=== PATIENT | female | born 1935 | race Caucasian/White ===

== ENCOUNTER 2016-09-05 13:56 | Emergency (ER) | payer MEDICARE, OTHER ==
[2016-09-05] MEDS ORDERED: ONDANSETRON 4 MG/2 ML VIAL IVP STA (16:36)
[2016-09-05] MEDS ORDERED: SODIUM CHLORIDE 0.9% 1,000 ML IV ONE (16:36)
[2016-09-05] MEDS ORDERED: ONDANSETRON 4 MG/2 ML VIAL ONE (16:41)
== END 2016-09-05 18:36 | disposition home or self-care (01) ==
DX: E86.0 Dehydration (principal); S32.059D Unspecified fracture of fifth lumbar vertebra, subsequent encounter for fracture with routine healing; E11.9 Type 2 diabetes mellitus without complications; I11.0 Hypertensive heart disease with heart failure; I50.9 Heart failure, unspecified; Z79.82 Long term (current) use of aspirin; Z79.4 Long term (current) use of insulin; Z87.891 Personal history of nicotine dependence

== ENCOUNTER 2016-10-08 | Outpatient (CLI) | payer MEDICARE, OTHER | END 2016-10-08 11:04 | disposition critical access hospital (66) | CPT/HCPCS: A0425; A0427 ==

== ENCOUNTER 2016-10-08 11:24 | Inpatient (IN) | payer MEDICARE, OTHER ==
[2016-10-08] MEDS ORDERED: SODIUM CHLORIDE 0.9% 1,000 ML IV ONE ×2 (12:18→14:09)
[2016-10-08] MEDS ORDERED: IOPAMIDOL-300 100 ML VIAL IVP ONE (14:04)
[2016-10-08] MEDS ORDERED: ONDANSETRON 4 MG/2 ML VIAL IVP STA (14:09)
[2016-10-08] MEDS ORDERED: ONDANSETRON 4 MG/2 ML VIAL ONE (14:20)
[2016-10-08] MEDS ORDERED: KETOROLAC 15 MG/ML VIAL IVP STA (14:27)
[2016-10-08] MEDS ORDERED: PANTOPRAZOLE 40 MG VIAL IVP STA (14:28)
[2016-10-08] MEDS ORDERED: KETOROLAC 30 MG/ML VIAL ONE (14:37)
[2016-10-08] MEDS ORDERED: PANTOPRAZOLE 40 MG VIAL ONE (14:38)
[2016-10-08] MEDS ORDERED: DEXTROSE 50% ABBOJECT 25 GM/50 ML SYRINGE ONE (15:30)
[2016-10-08] MEDS ORDERED: HYDROcod/ACETAM 10 MG/325 MG TABLET PO PRN (17:26)
[2016-10-08] MEDS ORDERED: ONDANSETRON 4 MG/2 ML VIAL IVP PRN (17:26)
[2016-10-08] MEDS ORDERED: LIDOCAINE PATCH 5% TOP PRN (17:33)
[2016-10-08] MEDS ORDERED: oxyCOD/ACETAMIN 5 MG/325 MG TABLET PO PRN (17:36)
[2016-10-08] MEDS ORDERED: TANZEUM 30 MG SQ SCH (17:45)
[2016-10-08] MEDS ORDERED: ALENDRONATE 70 MG TABLET PO SCH (18:00)
[2016-10-08] MEDS: DEXTROSE 5%-0.45% NACL 1,000 ML IV SCH (19:34)
[2016-10-08] MEDS ORDERED: INSULIN GLARGINE 300 UNIT/3 ML PEN SUBQ SCH (21:00)
[2016-10-08] MEDS ORDERED: SIMVASTATIN PO SCH (21:00)
[2016-10-08] MEDS ORDERED: LISINOPRIL 20 MG TABLET PO SCH ×2 (21:00→22:09)
[2016-10-08] MEDS ORDERED: EZETIMIBE PO SCH (21:00)
[2016-10-08] MEDS ORDERED: amLODIPine 5 MG TABLET PO SCH (21:00)
[2016-10-08] MEDS ORDERED: GLUCAGON 1 MG/ML VIAL SUBQ PRN (22:07)
[2016-10-08] MEDS ORDERED: DEXTROSE GEL 37.5 GM TUBE PO PRN (22:07)
[2016-10-08] MEDS ORDERED: DEXTROSE 5% 1,000 ML IV PRN (22:07)
[2016-10-08] MEDS: ATORVASTATIN 10 MG TABLET PO SCH (22:25)
[2016-10-08] MEDS: EZETIMIBE 10 MG TABLET PO SCH (22:25)
[2016-10-08] MEDS: GABAPENTIN 300 MG CAPSULE PO SCH (22:25)
[2016-10-08] MEDS: INSULIN ASPART 300 UNIT/3 ML PEN SUBQ SCH (22:26)
[2016-10-08] MEDS: SODIUM CHLORIDE FLUSH 0.9% 10 ML SYRINGE IVP SCH (22:30)
[2016-10-09] MEDS: DEXTROSE 5%-0.45% NACL 1,000 ML IV SCH ×2 (04:49→22:45)
[2016-10-09] MEDS: SODIUM CHLORIDE FLUSH 0.9% 10 ML SYRINGE IVP SCH ×3 (04:52→21:06)
[2016-10-09] MEDS: DEXTROSE 50% ABBOJECT 25 GM/50 ML SYRINGE IVP PRN ×2 (06:41→10:06)
[2016-10-09] MEDS: PANTOPRAZOLE 40 MG VIAL IVP SCH ×2 (06:44→19:14)
[2016-10-09] MEDS: LEVOTHYROXINE 25 MCG TABLET PO SCH (06:44)
[2016-10-09] MEDS ORDERED: ATENOLOL 25 MG TABLET PO SCH (09:00)
[2016-10-09] MEDS ORDERED: ALLOPURINOL 100 MG TABLET PO SCH (09:00)
[2016-10-09] MEDS ORDERED: amLODIPine 5 MG TABLET PO SCH (09:00)
[2016-10-09] MEDS ORDERED: DEXTROSE 50% ABBOJECT 25 GM/50 ML SYRINGE IVP ONE (10:02)
[2016-10-09] MEDS ORDERED: DEXTROSE 5%-LACTATED RINGERS 1,000 ML IV ONE (10:33)
[2016-10-09] MEDS: INSULIN ASPART 300 UNIT/3 ML PEN SUBQ SCH ×4 (11:42→21:46)
[2016-10-09] MEDS ORDERED: LIDOCAINE-MPF 2% 5 ML VIAL IM ONE (12:00)
[2016-10-09] MEDS ORDERED: DEXAMETHASONE 4 MG/ML VIAL IVP ONE (12:00)
[2016-10-09] MEDS ORDERED: PROPOFOL 200 MG/20 ML VIAL IVP ONE (12:00)
[2016-10-09] MEDS ORDERED: SUCCINYLCHOLINE 200 MG/10 ML VIAL IVP ONE (12:00)
[2016-10-09] MEDS ORDERED: MIDAZOLAM 2 MG/2 ML VIAL IVP ONE (12:00)
[2016-10-09] MEDS ORDERED: OXYTOCIN 10 UNIT/ML VIAL IV ONE (12:00)
[2016-10-09] MEDS ORDERED: ROCURONIUM 50 MG/5 ML VIAL IVP ONE (12:00)
[2016-10-09] MEDS ORDERED: fentaNYL 100 MCG/2 ML VIAL IVP ONE (12:00)
[2016-10-09] MEDS ORDERED: ONDANSETRON 4 MG/2 ML VIAL IVP ONE (12:00)
[2016-10-09] MEDS ORDERED: SODIUM CHLORIDE 0.9% 500 ML IV ONE ×2 (12:18→13:39)
[2016-10-09] MEDS: GABAPENTIN 300 MG CAPSULE PO SCH ×2 (20:19→22:44)
[2016-10-09] MEDS: ASPIRIN CHEW 81 MG TABLET PO SCH (20:19)
[2016-10-09] MEDS: ENOXAPARIN 40 MG/0.4 ML SYRINGE SUBQ SCH (20:19)
[2016-10-09] MEDS: DOCUSATE SODIUM 250 MG CAPSULE PO SCH (20:19)
[2016-10-09] MEDS: SENNA 8.6 MG TABLET PO SCH (20:19)
[2016-10-09] MEDS: POLYETHYLENE GLYCOL 3350 17 GM PACKET PO SCH (20:19)
[2016-10-09] MEDS: ONDANSETRON 4 MG/2 ML VIAL IVP PRN (21:06)
[2016-10-09] MEDS ORDERED: LIDOCAINE PATCH 5% TOP SCH (22:00)
[2016-10-09] MEDS: fentaNYL 50 MCG PATCH TOP SCH (22:26)
[2016-10-09] MEDS: ATORVASTATIN 10 MG TABLET PO SCH (22:44)
[2016-10-09] MEDS: EZETIMIBE 10 MG TABLET PO SCH (22:44)
[2016-10-09] MEDS ORDERED: MORPHINE 2 MG/ML SYRINGE IVP PRN (23:04)
[2016-10-10] MEDS ORDERED: PROMETHAZINE INJ 25 MG in SODIUM CHLORIDE 0.9% 50 ML IV PRN (00:26)
[2016-10-10] MEDS ORDERED: DEXTROSE 5% 1,000 ML IV PRN (01:55)
[2016-10-10] MEDS: SODIUM CHLORIDE FLUSH 0.9% 10 ML SYRINGE IVP PRN (04:38)
[2016-10-10] MEDS: SODIUM CHLORIDE FLUSH 0.9% 10 ML SYRINGE IVP SCH ×3 (05:10→21:05)
[2016-10-10] MEDS: POTASSIUM CHLOR 20 MEQ/100 ML 100 ML IV SCH ×4 (05:31→07:54)
[2016-10-10] MEDS: MAGNESIUM SULFATE 2 GRAM 50 ML IV SCH ×2 (05:32→06:31)
[2016-10-10] MEDS: PANTOPRAZOLE 40 MG VIAL IVP SCH ×2 (06:31→15:56)
[2016-10-10] MEDS: LEVOTHYROXINE 25 MCG TABLET PO SCH (06:32)
[2016-10-10] MEDS: DEXTROSE 5%-0.45% NACL 1,000 ML IV SCH ×3 (07:32→20:38)
[2016-10-10] MEDS: INSULIN ASPART 300 UNIT/3 ML PEN SUBQ SCH ×4 (07:51→21:17)
[2016-10-10] MEDS: D5.45NS W/20 MEQ KCL 1,000 ML IV SCH ×2 (08:47→21:05)
[2016-10-10] MEDS: SENNA 8.6 MG TABLET PO SCH (08:48)
[2016-10-10] MEDS: ENOXAPARIN 40 MG/0.4 ML SYRINGE SUBQ SCH (08:48)
[2016-10-10] MEDS: DOCUSATE SODIUM 250 MG CAPSULE PO SCH (08:48)
[2016-10-10] MEDS: METOCLOPRAMIDE 10 MG/2 ML VIAL IVP SCH ×2 (08:48→15:57)
[2016-10-10] MEDS: GABAPENTIN 300 MG CAPSULE PO SCH ×2 (08:49→21:04)
[2016-10-10] MEDS: ASPIRIN CHEW 81 MG TABLET PO SCH (08:49)
[2016-10-10] MEDS: LIDOCAINE PATCH 5% TOP SCH (08:49)
[2016-10-10] MEDS: POLYETHYLENE GLYCOL 3350 17 GM PACKET PO SCH (08:57)
[2016-10-10] MEDS ORDERED: SODIUM PHOSPHATE 15 MMOL in SODIUM CHLORIDE 0.9% 250 ML IV ONE (09:00)
[2016-10-10] MEDS ORDERED: CALCITONIN NASAL SPRAY NAS SCH (09:00)
[2016-10-10] MEDS: ONDANSETRON 4 MG/2 ML VIAL IVP PRN (20:38)
[2016-10-10] MEDS: ATORVASTATIN 10 MG TABLET PO SCH (21:04)
[2016-10-10] MEDS: EZETIMIBE 10 MG TABLET PO SCH (21:05)
[2016-10-10] MEDS: DEXTROSE 5%-0.9% NACL 1,000 ML IV SCH (21:15)
[2016-10-10] MEDS ORDERED: SODIUM CHLORIDE 0.9% 1,000 ML IV SCH (22:52)
[2016-10-11] MEDS: LEVOTHYROXINE 25 MCG TABLET PO SCH (06:27)
[2016-10-11] MEDS: PANTOPRAZOLE 40 MG VIAL IVP SCH ×2 (06:27→15:36)
[2016-10-11] MEDS: METOCLOPRAMIDE 10 MG/2 ML VIAL IVP SCH ×3 (06:27→15:36)
[2016-10-11] MEDS: SODIUM CHLORIDE FLUSH 0.9% 10 ML SYRINGE IVP SCH ×3 (06:27→15:36)
[2016-10-11] MEDS ORDERED: POTASSIUM PHOSPHATE 15 MMOL in SODIUM CHLORIDE 0.9% 250 ML IV ONE (08:00)
[2016-10-11] MEDS: INSULIN ASPART 300 UNIT/3 ML PEN SUBQ SCH ×4 (08:48→21:19)
[2016-10-11] MEDS: DEXTROSE 5%-0.9% NACL 1,000 ML IV SCH (10:07)
[2016-10-11] MEDS: CALCITONIN NASAL SPRAY NAS SCH (13:02)
[2016-10-11] MEDS: ASPIRIN CHEW 81 MG TABLET PO SCH (13:02)
[2016-10-11] MEDS: ENOXAPARIN 40 MG/0.4 ML SYRINGE SUBQ SCH (13:03)
[2016-10-11] MEDS: LIDOCAINE PATCH 5% TOP SCH (13:03)
[2016-10-11] MEDS: DOCUSATE SODIUM 250 MG CAPSULE PO SCH (13:03)
[2016-10-11] MEDS: GABAPENTIN 300 MG CAPSULE PO SCH ×2 (13:03→21:19)
[2016-10-11] MEDS: POLYETHYLENE GLYCOL 3350 17 GM PACKET PO SCH (13:04)
[2016-10-11] MEDS: SENNA 8.6 MG TABLET PO SCH (13:04)
[2016-10-11] MEDS: D5.45NS W/20 MEQ KCL 1,000 ML IV SCH (15:05)
[2016-10-11] MEDS ORDERED: MAGNESIUM HYDROXIDE 2,400 MG/30 ML UDC PO ONE (21:00)
[2016-10-11] MEDS: EZETIMIBE 10 MG TABLET PO SCH (21:19)
[2016-10-11] MEDS: ATORVASTATIN 10 MG TABLET PO SCH (21:19)
[2016-10-11] MEDS: SODIUM CHLORIDE FLUSH 0.9% 10 ML SYRINGE IVP PRN (21:30)
[2016-10-12] MEDS: LEVOTHYROXINE 25 MCG TABLET PO SCH (06:29)
[2016-10-12] MEDS: D5.45NS W/20 MEQ KCL 1,000 ML IV SCH ×3 (06:29→23:42)
[2016-10-12] MEDS: PANTOPRAZOLE 40 MG VIAL IVP SCH ×2 (06:29→17:09)
[2016-10-12] MEDS: METOCLOPRAMIDE 10 MG/2 ML VIAL IVP SCH ×3 (06:29→18:06)
[2016-10-12] MEDS: SODIUM CHLORIDE FLUSH 0.9% 10 ML SYRINGE IVP SCH ×3 (06:29→21:24)
[2016-10-12] MEDS ORDERED: FLUCONAZOLE 100 MG TABLET PO STA (07:45)
[2016-10-12] MEDS: ENOXAPARIN 40 MG/0.4 ML SYRINGE SUBQ SCH (09:09)
[2016-10-12] MEDS: NEUTRA-PHOS 250 MG TABLET PO SCH ×3 (09:10→18:07)
[2016-10-12] MEDS: ASPIRIN CHEW 81 MG TABLET PO SCH (09:10)
[2016-10-12] MEDS: LIDOCAINE PATCH 5% TOP SCH (09:10)
[2016-10-12] MEDS: GABAPENTIN 300 MG CAPSULE PO SCH ×2 (09:10→21:22)
[2016-10-12] MEDS: SENNA 8.6 MG TABLET PO SCH (09:11)
[2016-10-12] MEDS: DOCUSATE SODIUM 250 MG CAPSULE PO SCH (09:11)
[2016-10-12] MEDS: POLYETHYLENE GLYCOL 3350 17 GM PACKET PO SCH (09:11)
[2016-10-12] MEDS: INSULIN ASPART 300 UNIT/3 ML PEN SUBQ SCH ×4 (09:12→21:26)
[2016-10-12] MEDS ORDERED: BENZOCAINE/MENTHOL LOZENGE MM ONE ×2 (09:17→09:55)
[2016-10-12] MEDS: ONDANSETRON 4 MG/2 ML VIAL IVP PRN (09:19)
[2016-10-12] MEDS: CALCITONIN NASAL SPRAY NAS SCH (09:25)
[2016-10-12] MEDS ORDERED: BISACODYL 10 MG SUPP PR ONE (13:00)
[2016-10-12] MEDS: SODIUM CHLORIDE FLUSH 0.9% 10 ML SYRINGE IVP PRN ×3 (13:21→21:24)
[2016-10-12] MEDS: ATORVASTATIN 10 MG TABLET PO SCH (21:22)
[2016-10-12] MEDS: EZETIMIBE 10 MG TABLET PO SCH (21:22)
[2016-10-12] MEDS: fentaNYL 50 MCG PATCH TOP SCH (21:36)
[2016-10-13] MEDS: SODIUM CHLORIDE FLUSH 0.9% 10 ML SYRINGE IVP SCH ×3 (06:00→17:31)
[2016-10-13] MEDS: PANTOPRAZOLE 40 MG VIAL IVP SCH ×2 (06:11→17:31)
[2016-10-13] MEDS: LEVOTHYROXINE 25 MCG TABLET PO SCH (07:13)
[2016-10-13] MEDS: DEXTROSE 50% ABBOJECT 25 GM/50 ML SYRINGE IVP PRN (07:18)
[2016-10-13] MEDS: METOCLOPRAMIDE 10 MG/2 ML VIAL IVP SCH ×3 (09:31→17:31)
[2016-10-13] MEDS: ENOXAPARIN 40 MG/0.4 ML SYRINGE SUBQ SCH (09:51)
[2016-10-13] MEDS: ONDANSETRON 4 MG/2 ML VIAL IVP PRN ×2 (10:28→17:24)
[2016-10-13] MEDS: INSULIN ASPART 300 UNIT/3 ML PEN SUBQ SCH ×4 (10:50→21:40)
[2016-10-13] MEDS: GABAPENTIN 300 MG CAPSULE PO SCH ×2 (11:18→21:49)
[2016-10-13] MEDS: FLUCONAZOLE 100 MG TABLET PO SCH (11:18)
[2016-10-13] MEDS: DOCUSATE SODIUM 250 MG CAPSULE PO SCH (11:18)
[2016-10-13] MEDS: SENNA 8.6 MG TABLET PO SCH (11:18)
[2016-10-13] MEDS: NEUTRA-PHOS 250 MG TABLET PO SCH ×3 (11:18→17:31)
[2016-10-13] MEDS: CALCITONIN NASAL SPRAY NAS SCH (11:19)
[2016-10-13] MEDS: ASPIRIN CHEW 81 MG TABLET PO SCH (11:19)
[2016-10-13] MEDS: POLYETHYLENE GLYCOL 3350 17 GM PACKET PO SCH (11:20)
[2016-10-13] MEDS: LIDOCAINE PATCH 5% TOP SCH (11:23)
[2016-10-13] MEDS: D5.45NS W/20 MEQ KCL 1,000 ML IV SCH (14:53)
[2016-10-13] MEDS: EZETIMIBE 10 MG TABLET PO SCH (21:49)
[2016-10-13] MEDS: ATORVASTATIN 10 MG TABLET PO SCH (21:49)
[2016-10-14] MEDS: SODIUM CHLORIDE FLUSH 0.9% 10 ML SYRINGE IVP SCH ×4 (06:23→21:17)
[2016-10-14] MEDS: PANTOPRAZOLE 40 MG VIAL IVP SCH ×2 (06:24→16:12)
[2016-10-14] MEDS: LEVOTHYROXINE 25 MCG TABLET PO SCH (06:24)
[2016-10-14] MEDS: D5.45NS W/20 MEQ KCL 1,000 ML IV SCH ×2 (07:03→17:49)
[2016-10-14] MEDS: METOCLOPRAMIDE 10 MG/2 ML VIAL IVP SCH (07:43)
[2016-10-14] MEDS: DEXTROSE 50% ABBOJECT 25 GM/50 ML SYRINGE IVP PRN (08:17)
[2016-10-14] MEDS: INSULIN ASPART 300 UNIT/3 ML PEN SUBQ SCH ×4 (08:51→21:03)
[2016-10-14] MEDS ORDERED: CALCIUM GLUCONATE 1,000 MG in SODIUM CHLORIDE 0.9% 50 ML IV ONE (09:00)
[2016-10-14] MEDS: ASPIRIN CHEW 81 MG TABLET PO SCH (09:37)
[2016-10-14] MEDS: FLUCONAZOLE 100 MG TABLET PO SCH (09:37)
[2016-10-14] MEDS: GABAPENTIN 300 MG CAPSULE PO SCH ×2 (09:37→21:05)
[2016-10-14] MEDS: ONDANSETRON 4 MG/2 ML VIAL IVP PRN (09:38)
[2016-10-14] MEDS: NEUTRA-PHOS 250 MG TABLET PO SCH ×3 (10:15→17:48)
[2016-10-14] MEDS: ACYCLOVIR 200 MG CAPSULE PO SCH ×3 (10:15→21:06)
[2016-10-14] MEDS: POLYETHYLENE GLYCOL 3350 17 GM PACKET PO SCH (10:17)
[2016-10-14] MEDS: ENOXAPARIN 40 MG/0.4 ML SYRINGE SUBQ SCH (10:24)
[2016-10-14] MEDS: LIDOCAINE PATCH 5% TOP SCH (10:24)
[2016-10-14] MEDS: CALCITONIN NASAL SPRAY NAS SCH (10:27)
[2016-10-14] MEDS: DOCUSATE SODIUM 250 MG CAPSULE PO SCH (10:27)
[2016-10-14] MEDS: SENNA 8.6 MG TABLET PO SCH (10:27)
[2016-10-14] MEDS: METOCLOPRAMIDE 10 MG TABLET PO SCH ×3 (12:21→21:05)
[2016-10-14] MEDS: SODIUM CHLORIDE FLUSH 0.9% 10 ML SYRINGE IVP PRN (16:12)
[2016-10-14] MEDS: oxyCOD/ACETAMIN 5 MG/325 MG TABLET PO PRN (21:05)
[2016-10-14] MEDS: ATORVASTATIN 10 MG TABLET PO SCH (21:06)
[2016-10-15] MEDS: D5.45NS W/20 MEQ KCL 1,000 ML IV SCH (02:57)
[2016-10-15] MEDS: LEVOTHYROXINE 25 MCG TABLET PO SCH (06:54)
[2016-10-15] MEDS: PANTOPRAZOLE 40 MG VIAL IVP SCH (06:54)
[2016-10-15] MEDS: METOCLOPRAMIDE 10 MG TABLET PO SCH ×2 (06:54→12:19)
[2016-10-15] MEDS: SODIUM CHLORIDE FLUSH 0.9% 10 ML SYRINGE IVP SCH (06:54)
[2016-10-15] MEDS: ACYCLOVIR 200 MG CAPSULE PO SCH ×2 (06:54→12:19)
[2016-10-15] MEDS: LIDOCAINE PATCH 5% TOP SCH (08:51)
[2016-10-15] MEDS: CALCITONIN NASAL SPRAY NAS SCH (08:52)
[2016-10-15] MEDS: oxyCOD/ACETAMIN 5 MG/325 MG TABLET PO PRN ×2 (08:52→12:19)
[2016-10-15] MEDS: NEUTRA-PHOS 250 MG TABLET PO SCH ×2 (08:53→12:19)
[2016-10-15] MEDS: SENNA 8.6 MG TABLET PO SCH (08:53)
[2016-10-15] MEDS: ASPIRIN CHEW 81 MG TABLET PO SCH (08:53)
[2016-10-15] MEDS: POLYETHYLENE GLYCOL 3350 17 GM PACKET PO SCH (08:53)
[2016-10-15] MEDS: GABAPENTIN 300 MG CAPSULE PO SCH (08:53)
[2016-10-15] MEDS: DOCUSATE SODIUM 250 MG CAPSULE PO SCH (08:53)
[2016-10-15] MEDS: ENOXAPARIN 40 MG/0.4 ML SYRINGE SUBQ SCH (08:55)
[2016-10-15] MEDS: INSULIN ASPART 300 UNIT/3 ML PEN SUBQ SCH (08:59)
== END 2016-10-15 13:40 | DRG 392 ==
DX: R11.2 Nausea with vomiting, unspecified (principal); T14.8 Other injury of unspecified body region; M47.816 Spondylosis without myelopathy or radiculopathy, lumbar region; R11.11 Vomiting without nausea; R62.7 Adult failure to thrive; B00.89 Other herpesviral infection; E87.2 Acidosis; E46 Unspecified protein-calorie malnutrition; E78.00 Pure hypercholesterolemia, unspecified; E13.51 Other specified diabetes mellitus with diabetic peripheral angiopathy without gangrene; Z68.44 Body mass index [BMI] 60.0-69.9, adult; K20.8 Other esophagitis; K21.9 Gastro-esophageal reflux disease without esophagitis; E11.43 Type 2 diabetes mellitus with diabetic autonomic (poly)neuropathy; K31.84 Gastroparesis; Z79.82 Long term (current) use of aspirin; K29.70 Gastritis, unspecified, without bleeding; Z79.891 Long term (current) use of opiate analgesic; Z79.899 Other long term (current) drug therapy; E11.649 Type 2 diabetes mellitus with hypoglycemia without coma; E11.51 Type 2 diabetes mellitus with diabetic peripheral angiopathy without gangrene; R53.1 Weakness; E03.9 Hypothyroidism, unspecified; E78.5 Hyperlipidemia, unspecified; I11.0 Hypertensive heart disease with heart failure; I50.9 Heart failure, unspecified; F32.9 Major depressive disorder, single episode, unspecified; E86.0 Dehydration; I95.9 Hypotension, unspecified; M10.9 Gout, unspecified; K57.30 Diverticulosis of large intestine without perforation or abscess without bleeding; K44.9 Diaphragmatic hernia without obstruction or gangrene; Z79.4 Long term (current) use of insulin; I25.10 Atherosclerotic heart disease of native coronary artery without angina pectoris; N28.9 Disorder of kidney and ureter, unspecified; S32.009S Unspecified fracture of unspecified lumbar vertebra, sequela; W19.XXXS Unspecified fall, sequela; G89.29 Other chronic pain; M54.9 Dorsalgia, unspecified; K75.9 Inflammatory liver disease, unspecified; Z87.891 Personal history of nicotine dependence; T38.3X5A Adverse effect of insulin and oral hypoglycemic [antidiabetic] drugs, initial encounter; T40.4X5A Adverse effect of other synthetic narcotics, initial encounter; T42.6X5A Adverse effect of other antiepileptic and sedative-hypnotic drugs, initial encounter; T40.2X5A Adverse effect of other opioids, initial encounter; Y92.009 Unspecified place in unspecified non-institutional (private) residence as the place of occurrence of the external cause

== ENCOUNTER 2016-10-15 | Outpatient (CLI) | payer MEDICARE, OTHER | END 2016-10-15 13:16 | DX: R53.1 Weakness (principal) | CPT/HCPCS: A0425; A0428 ==

== ENCOUNTER 2017-01-20 13:25 | Outpatient (CLI) | payer MEDICARE, OTHER | END 2017-01-20 13:26 | disposition critical access hospital (66) | LOC: EMS 13:25 | PROVIDERS: ATTEND Surgery | DX: M54.9 Dorsalgia, unspecified (principal) | CPT/HCPCS: A0425; A0429 ==

== ENCOUNTER 2017-01-20 13:47 | Observation (INO) | payer MEDICARE, OTHER ==
--- NOTE | 2017-01-20 13:51 | ED Physician Documentation ---
PD HPI BACK PAIN - Stated complaint Stated Complaint: BACK PAIN - History obtained from History obtained from: Patient, Family (spouse), EMS - History of Present Illness Timing - onset: How many days ago (has had pain in lumbar area since last Oct from burst fracture L1. Has been on pain meds but has been worse pain lately. No new fall/ injury, but pain has increased with being helped up few days ago. Had been seen by PMD and had Fentanyl patch resumed a month ago. Also has hydrocodone. Previously fentanyl patch 50 mcg and percocet had led to too much sedation. So is at Fentanyl 25 mcg now with hydrocodone. Not pain controlled. Had Xanax ? added as muscle relaxant several days ago. Patient says pain has worsened the past couple days and is unable to get up even with assist. Does have Home Aides through many hours of day. unable to lift her up and she has not been able to get out of bed due to pain. Here via EMS for evaluation.) Timing - details: Gradual onset, Still present Location: Lower, Left Quality: Pain, Spasm, Sharp Associated symptoms: Incontinent of urine (chronic). No: Fever, Weakness, Numbness Worsened by: Movement, Twisting Contributing factors: Twisting. No: Trauma Recently seen: Not recently seen Review of Systems Constitutional: denies: Fever, Chills Nose: denies: Rhinorrhea / runny nose, Congestion Throat: denies: Sore throat Respiratory: denies: Cough GI: denies: Abdominal Pain, Nausea, Vomiting, Diarrhea Skin: denies: Rash, Lesions PD PAST MEDICAL HISTORY - Past Medical History Cardiovascular: Congestive heart failure, Hypertension, High cholesterol, Coronary artery disease, Peripheral Vascular Disease Respiratory: None Neuro: None Endocrine/Autoimmune: Type 2 diabetes, Other GI: Hepatitis : Renal insuffiency HEENT: None Psych: None Musculoskeletal: Gout, Chronic back pain Derm: None - Past Surgical History Past Surgical History: Yes General: Cholecystectomy, Appendectomy, Colonoscopy Ortho: Other - Present Medications Home Medications: Ambulatory Orders Medication Instructions Recorded Confirmed Allopurinol 100 mg PEG DAILY 12/08/13 01/20/17 Atenolol 100 mg PEG DAILY 12/08/13 01/20/17 Levothyroxine [Synthroid] 25 mcg PO DAILY 11/05/15 01/20/17 Multivitamin [Multivitamins] 1 each PEG DAILY 11/05/15 01/20/17 Gabapentin 300 mg PO TID 10/08/16 01/20/17 Hydrocodone/Acetaminophen [Lortab 1 tab PEG Q4H PRN 10/08/16 01/20/17 5-325 mg Tablet] Lidocaine Patch 5% [Lidoderm Patch] 1 patch TD DAILY 10/08/16 01/20/17 Temazepam [Restoril] 7.5 mg PO QPM 10/08/16 01/20/17 fentaNYL 50 MCG PATCH [Duragesic 1 patch TD Q72H 10/08/16 01/20/17 50mcg patch] Alprazolam 0.5 mg PEG TID PRN 01/20/17 01/20/17 Carbidopa/Levodopa 10/100 [Sinemet 1 tab PEG BID 01/20/17 01/20/17 10 mg/100 mg] Furosemide [Lasix] 20 mg PEG DAILY 01/20/17 01/20/17 Nortriptyline [Pamelor] 10 mg PEG DAILY 01/20/17 01/20/17 Simvastatin 20 mg PEG DAILY 01/20/17 01/20/17 Warfarin Sodium [Coumadin] 2 mg PEG DAILY 01/20/17 01/20/17 - Allergies Allergies/Adverse Reactions: Allergies Allergy/AdvReac Type Severity Reaction Status Date / Time nitrofurantoin Allergy feels sick Verified 01/20/17 14:20 [From Macrobid] nitrofurantoin Allergy feels sick Verified 01/20/17 14:20 macrocrystalline * [From Macrobid] - Social History Does the pt smoke?: No Smoking Status: Former smoker Does the pt drink ETOH?: No Does the pt have substance abuse?: No - Immunizations Immunizations are current?: Yes - POLST Patient has POLST: Yes POLST Status: DNR PD ED PE NORMAL - Vitals Vital signs reviewed: Yes - General General: Alert and oriented X 3, No acute distress, Well developed/nourished - HEENT HEENT: Atraumatic - Neck Neck: Supple, no meningeal sign, No bony TTP, No adenopathy - Cardiac Cardiac: RRR, No murmur - Respiratory Respiratory: Clear bilaterally - Abdomen Abdomen: Soft, Non tender - Back Back: Other (left low back with some muscle tenderness. No point trigger. pain with ROM attempt. ) - Derm Derm: Normal color, Warm and dry, No rash - Extremities Extremities: No tenderness to palpate, Normal ROM s pain - Neuro Neuro: Alert and oriented X 3, No motor deficit, No sensory deficit, Normal speech, Other (1+ DTRs at knees) - Psych Psych: Normal mood, Normal affect Results - Vitals Vitals: Vital Signs - 24 hr 01/20/17 01/20/17 01/20/17 13:54 16:11 17:10 Temperature 36.1 C L Heart Rate 74 59 L 74 Respiratory 19 18 19 Rate Blood Pressure 138/74 H 93/59 L 119/73 O2 Saturation 97 96 96 Oxygen O2 Source [With Activity] Nasal cannula O2 Source Room air - Labs Labs: Laboratory Tests 01/20/17 01/20/17 14:25 14:25 WBC 14.1 H RBC 4.28 Hgb 12.5 Hct 37.3 MCV 87.1 MCH 29.3 MCHC 33.6 RDW 15.6 H Plt Count 292 MPV 7.6 L Neut # Not Reportable Lymph # Not Reportable [place] # Not Reportable Eos # Not Reportable Baso # Not Reportable Absolute Nucleated RBC Not Reportable Total Counted 100 Band Neuts % (Manual) 0 Reactive Lymphs % (Man) 3 Neutrophils # (Manual) 9.7 H Lymphocytes # (Manual) 3.1 Monocytes # (Manual) 0.8 Eosinophils # (Manual) 0.3 Basophils # (Manual) 0.1 Nucleated RBCs Not Reportable Differential Comment MANUAL DIFFERENTIAL Platelet Estimate NORMAL (130-450,000) RBC Morph Micro Appear 1+ POLYCHROMASIA PT 59.7 H INR 5.2 H* sda - Rads (name of study) lumbar CT Radiology: Prelim report reviewed (no acute/new fractures. Prior burst fracture noted.), EMP read contemporaneously PD MEDICAL DECISION MAKING - ED course Complexity details: reviewed results, considered differential (will get CT lumbar to assess for new fractures. Check labs. Her INR is elevated. WBC also elevated. UA done via cath showing UTI. ), d/w patient, d/w vocational rehabilitation consultant (Dr. Avery, due to pain and intractable. Unable to move/walk. ) Departure - Departure Disposition: ED Place in Observation Clinical Impression: Closed compression fracture of L1 lumbar vertebra, Exacerbation of chronic back pain, Intractable back pain, Inability to walk, Anticoagulant long-term use , Elevated INR UTI (urinary tract infection) Qualifiers: Urinary tract infection type: site unspecified Hematuria presence: without hematuria Qualified Code(s): N39.0 - Urinary tract infection, site not specified Condition: Stable Record reviewed to determine appropriate education?: Yes Discharge Date/Time: 01/20/17 19:55
[2017-01-20] MEDS ORDERED: HYDROmorphone 1 MG/ML SYRINGE IVP STA ×2 (14:11→16:36)
[2017-01-20] MEDS ORDERED: HYDROmorphone 1 MG/ML SYRINGE ONE ×2 (14:24→17:01)
[2017-01-20 14:36] LABS: BASOPHILS % (AUTO) 0.6 %; EOSINOPHILS % (AUTO) 1.5 %; HCT - HEMATOCRIT 37.3 % (37.0-47.0); HGB - HEMOGLOBIN 12.5 g/dL (12.0-16.0); LYMPHOCYTES % (AUTO) 16.2 %; MEAN CORPUSCULAR HEMOGLOBIN 29.3 pg (27.0-31.0); MEAN CORPUSCULAR HGB CONC 33.6 g/dL (32.0-36.0); MEAN CORPUSCULAR VOLUME 87.1 fL (81.0-99.0); MEAN PLATELET VOLUME 7.6 fL (7.9-10.8); MONOCYTES % (AUTO) 6.2 %; NEUTROPHILS % (AUTO) 75.5 %; RED BLOOD COUNT 4.28 10^6/uL (4.20-5.40); RED CELL DISTRIBUTION WIDTH 15.6 % (12.0-15.0); UNCORRECTED WHITE BLOOD COUNT 14.1 x10^3/uL; WHITE BLOOD COUNT 14.1 x10^3/uL (4.8-10.8)
[2017-01-20 14:40] LABS: BAND NEUTROPHILS % (MANUAL) 0 %
[2017-01-20 14:42] LABS: PT - PROTHROMBIN TIME 59.7 secs (9.9-12.6)
[2017-01-20 14:52] LABS: INR 5.2 (0.8-1.2)
[2017-01-20 15:27] LABS: BASOPHILS % (MANUAL) 1 %; EOSINOPHILS % (MANUAL) 2 %; LYMPHOCYTES % (MANUAL) 19 %; NEUTROPHILS % (MANUAL) 69 %; TOTAL CELLS COUNTED 100
[2017-01-20 15:28] LABS: NP AUTO DIFFERENTIAL? YES; NP MAN DIFFERENTIAL? NO; PLATELET ESTIMATE, MANUAL NORMAL (130-450,000) (NORMAL)
[2017-01-20] MEDS ORDERED: SODIUM CHLORIDE 0.9% 1,000 ML IV ONE ×2 (16:13→20:56)
--- NOTE | 2017-01-20 16:20 | CT Preliminary Report ---
Exam: CT Lumbar Spine W/O IMPRESSION: 1. Chronic L1 burst fracture with retropulsion of fragments into the spinal canal which is narrowed t o measure 6 mm. No new fractures. Patient is osteopenic. 2. Diffuse degenerative disk disease, see above. 3. 3 mm of L2 on L3 retrolisthesis and 9 mm of L4 on L5 anterolisthesis is likely degenerative in vanita gin. [facility] SITE ID: [id number]
--- NOTE | 2017-01-20 16:46 | CT Report ---
EXAM: CT LUMBAR SPINE WITHOUT CONTRAST EXAM DATE: 01/20/2017 03:37 PM. CLINICAL HISTORY: Chronic back pain, but abruptly worse today. COMPARISONS: None. TECHNIQUE: Thin-section axial images were acquired of the lumbar spine from T12 to S1 without contras t. Post-processing: Coronal and sagittal reformats. Other: None. In accordance with CT protocol optimization, one or more of the following dose reduction techniques w ere utilized for this exam: automated exposure control, adjustment of mA and/or KV based on patient s ize, or use of iterative reconstructive technique. FINDINGS: Alignment: 9 mm L4 on L5 anterolisthesis. 3 mm of L2 on L3 retrolisthesis. These are likely degenerat elian in origin. Bones: 5 lumbar cell vertebral body is noted. Osteopenic patient. Probable healed or healing posterom edial left 12th rib fracture. Redemonstration of a 2 column burst fracture at L1 with 7.5 mm of retro pulsion of fragments into the spinal canal. At this level, the spinal canal measures [address] ane on image 4, 39. No new fractures are identified. Kyphosis is centered at L1. Disk Levels/Facets: T12-L1: Mild disk narrowing. Moderate disk narrowing. L1-L2: Mild bilateral facet arthropathy. L2-L3: Moderate to marked disk narrowing with a prominent disk osteophyte complex. Mild bilateral for aminal stenosis. Mild bilateral facet arthropathy. Mild disk narrowing. L3-L4: Small disk bulge is noted. Marked bilateral facet arthropathy. Ligamentum flavum hypertrophy i s noted. This results in central canal stenosis. L4-L5: Mild to disk narrowing. Marked bilateral facet arthropathy. No significant foraminal stenosis. L5-S1: Unremarkable. Musculature: Normal. No fatty atrophy. Other: No paraspinal hematoma is noted. Nodular thickening of both adrenal glands as before. Bilatera l low density renal cysts. No stones or hydronephrosis. Visualized portions of both ureters are other chase unremarkable. Extensive atheromatous calcified plaques are present throughout the nondilated abd ominal aorta and branch vessels. IVC is normal. Dense left adnexal calcifications. Visualized portion s of the bladder, uterus and right ovary are normal. Occasional sigmoid diverticula. No inflammation. Enteric tube is noted. IMPRESSION: 1. Chronic L1 burst fracture with retropulsion of fragments into the spinal canal which is narrowed t o measure 6 mm. No new fractures. Patient is osteopenic. 2. Diffuse degenerative disk disease, see above. 3. 3 mm of L2 on L3 retrolisthesis and 9 mm of L4 on L5 anterolisthesis is likely degenerative in vanita gin. [facility] Referring Provider Line: [phone] SITE ID: [id number]
[2017-01-20] MEDS ORDERED: fentaNYL 50 MCG PATCH TOP STA (17:13)
[2017-01-20] MEDS ORDERED: KETOROLAC 60 MG/2 ML VIAL IVP STA (17:57)
[2017-01-20] MEDS ORDERED: ACETAMINOPHEN 325 MG TABLET PO STA (17:57)
[2017-01-20] MEDS ORDERED: ACETAMINOPHEN 160 MG/5 ML SUSP UDC ONE (18:06)
[2017-01-20] MEDS ORDERED: KETOROLAC 30 MG/ML VIAL ONE (18:06)
[2017-01-20 19:33] LABS: BILIRUBIN,URINE NEGATIVE (NEGATIVE)
[2017-01-20 19:34] LABS: UA w/ MICROSCOPIC CHARGE YES
[2017-01-20 19:43] LABS: UR CULTURE IF IND INDICATED
[2017-01-20] MEDS ORDERED: fentaNYL 50 MCG PATCH TOP SCH (20:00)
[2017-01-20] MEDS ORDERED: HYDROcod/ACETAM 5/325 MG TABLET PO PRN (20:04)
--- NOTE | 2017-01-20 20:56 | HISTORY & PHYSICAL EXAMINATION ---
DATE OF ADMISSION: 01/20/2017 PRIMARY CARE PROVIDER: Dr. Dennison. ADMITTING PROVIDER: Gaviota Avery MD. CHIEF COMPLAINT: Horrific back pain. HISTORY OF PRESENT ILLNESS: The patient is a pleasant 81-year-old woman who was just admitted in [facility] for intractable nausea and vomiting. Final workup with EGD showed her to have HSV esophagitis. S he ended up being discharged to [facility]. Nutrition status was impaired and s he now has a chronic indwelling PEG for tube feedings. In addition to the above problems she has chronic back pain from a burst vertebral compression fractu re from last May. The pain waxes and wanes. She was on fentanyl 50 and had her p.r.n. Percocet in creased. She became very lethargic with that and as such that was backed off on. In the last few days she has had a flare in pain for no specific reason. There have been no falls, no new heavy activities. She has no fever, no chills. The pain became so intractable that she had to co me to the emergency room via ambulance. Dr. Tom has found her to have the same closed compression fracture of L1, and has given her Dilau did twice, and hydrocodone 5 mg 1 tablet every 4 hours as needed. The pain is just starting to improv e. She has also received ketorolac, Tylenol. In an effort to try and see if she could get up, she jus t could not get up. As such, she is now admitted for intractable pain and a Larson has been placed. Sh e will be placed in observation, pain carefully watched and Dilaudid given p.r.n. It is hoped that in the morning Physical Therapy can help her transition to a standing and sitting position to then all ow her to go home. She does have in-home support. She says that she gets care from 8 in the morning u ntil noon, then from 2 until 7 every day. Tonight she just cannot sit up at this time. She has no bow el or bladder incontinence, but is asking if we can please keep the Larson in her because just transit ioning to try and urinate is agonizingly painful in her back. PAST MEDICAL HISTORY: 1. 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 2. Hypertension. 3. Hyperlipidemia. 4. Coronary artery disease. 5. Peripheral vascular disease. 6. Type 2 diabetes mellitus. 7. Gout. 8. Chronic back pain. 9. Reported congestive heart failure, but the patient denies. 10. Chronic kidney disease. 11. History of hepatitis which the patient denies. PAST SURGICAL HISTORY: Includes cholecystectomy, appendectomy, colonoscopy and EGD. SOCIAL HISTORY: She lives with her . She is a former smoker and quit around 1999, maybe 1997. She has no history of alcohol abuse. CODE STATUS: DO NOT RESUSCITATE, DO NOT INTUBATE. FAMILY HISTORY: Parents of old age. Siblings are all . Children are healthy. REVIEW OF SYSTEMS: Shows her to be partially edentulous, has a hard time hearing, old cataracts. PULMONARY: She has a chronic mild cough, but denies any exacerbation, chest pain, shortness of breath . CARDIOVASCULAR: Denies edema, orthopnea, angina. GASTROINTESTINAL: Easy reflux, but denies current abdominal pain, change in bowel habits. No blood in stool. She has almost 24/7 tube feedings now. She has her own bags with her. GENITOURINARY: Denies urgency, frequency, dysuria, back pain. JOINTS: Always hurt. Back is the most likely culprit, but really everything hurts and is stiff. PRODUCT MARKETER: Mildly deaf, but denies syncope, seizures, dementia. PHYSICAL EXAMINATION: GENERAL: On examination, she is seen in the emergency room lying on her left side supported by pillow s, at the bedside very carefully taking care of her and helping nurses take care of her. She is in no acute distress as long as she stays perfectly still, but the minute I try and roll her over or sit her up she cries out in pain. VITAL SIGNS: Temperature is 36.1, pulse 74, blood pressure 119/73, respirations 19. HEENT: Arcus senilis, bad teeth, partially edentulous, but no slurred speech. Tongue midline. NECK: Shotty adenopathy. No goiter or bruits. 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 LUNGS: Clear with slightly prolonged on exhalation and occasional rhonchi that clears with cough, but with coughing she cries out again with pain. CARDIOVASCULAR: PMI is normally placed with a regular rate and rhythm and a systolic ejection murmur. ABDOMEN: Slightly protuberant because of the kyphosis, soft, nontender, normal bowel sounds. EXTREMITIES: Ankles have trace edema. She has knobby deformities of osteoarthritis. NEUROLOGIC: Neurologically she is alert and oriented, she can flex and extend at the knees carefully as long as I do not have her move her back. She can plantar and dorsiflex her feet. She is not willin g to lie on her back to lift her legs for me. Hand grasp strength is normal. ASSESSMENT/PLAN: 1. Intractable pain that is acute superimposed on chronic back pain from vertebral compression fractu re. She has been increased from 25 fentanyl to 50 fentanyl in the ED. Given Dilaudid. I am going to s upplement with a little bit of Valium. Continue the fentanyl. Continue the opiate at 1-2 every 4 hour s, doing this noting that she was very sedated with the last change in medication. In the morning vaibhav n on having physical therapy see her and help her transition. She has adequate in-home support at [facility]. I have given her the option of trying to find placement for her at a [facility] facility as s elf-pay, she declines. 2. Hypertension that is controlled. Resume her usual medications. 3. History of gout. No acute exacerbation. Resume usual medications. 4. History of HSV esophagitis and intractable nausea, vomiting with subsequent malnutrition. PEG tube is in place. has brought enough tube feeds for her to continue into tomorrow. 5. CODE STATUS: DO NOT RESUSCITATE STATUS. 6. Deep venous thrombosis prophylaxis ongoing with Coumadin. Her INR is 5.2 today. We will hold Couma din and recheck INR in the morning. JOB #: [id number] EXT JOB #:[id number]
[2017-01-20] MEDS ORDERED: ATORVASTATIN 10 MG TABLET PO SCH (21:00)
[2017-01-20] MEDS ORDERED: TEMAZEPAM 15 MG CAPSULE PO SCH (21:00)
[2017-01-20] MEDS: NYSTATIN 500000 UNITS/5 ML UDC PO SCH (21:33)
[2017-01-20] MEDS: GABAPENTIN 300 MG CAPSULE PEG SCH (21:40)
[2017-01-20] MEDS: SODIUM CHLORIDE FLUSH 0.9% 10 ML SYRINGE IVP SCH (21:40)
[2017-01-20] MEDS: CARBIDOPA/LEVODOPA 10 MG/100 MG TABLET PO SCH (21:45)
[2017-01-20] MEDS ORDERED: ALPRAZolam 0.25 MG TABLET PO PRN (22:00)
[2017-01-21] MEDS ORDERED: cefTRIAXone 1 GM in SODIUM CHLORIDE 0.9% MINIBAG 100 ML IV SCH (00:04)
[2017-01-21] MEDS ORDERED: SODIUM CHLORIDE 0.9% 250 ML IV ONE (00:20)
[2017-01-21] MEDS: SODIUM CHLORIDE FLUSH 0.9% 10 ML SYRINGE IVP PRN ×3 (00:35→02:46)
[2017-01-21] MEDS: HYDROmorphone 1 MG/ML SYRINGE IVP PRN ×4 (02:45→12:56)
[2017-01-21] MEDS: GABAPENTIN 300 MG CAPSULE PEG SCH (05:40)
[2017-01-21] MEDS: SODIUM CHLORIDE FLUSH 0.9% 10 ML SYRINGE IVP SCH ×2 (05:41→08:43)
[2017-01-21 06:54] LABS: PT - PROTHROMBIN TIME 57.1 secs (9.9-12.6)
[2017-01-21] MEDS: CARBIDOPA/LEVODOPA 10 MG/100 MG TABLET PO SCH (08:42)
[2017-01-21] MEDS: NYSTATIN 500000 UNITS/5 ML UDC PO SCH ×2 (08:43→12:56)
[2017-01-21] MEDS ORDERED: LIDOCAINE PATCH 5% TOP SCH (09:00)
[2017-01-21] MEDS ORDERED: FUROSEMIDE 40 MG/4 ML SOLUTION PEG SCH (09:00)
[2017-01-21] MEDS ORDERED: LEVOTHYROXINE 25 MCG TABLET PEG SCH (09:00)
[2017-01-21] MEDS ORDERED: POLYETHYLENE GLYCOL 3350 17 GM PACKET PEG SCH (09:00)
[2017-01-21] MEDS ORDERED: ATENOLOL 25 MG TABLET PEG SCH (09:00)
[2017-01-21] MEDS ORDERED: NON FORMULARY MED (Simvastatin [Simvastatin] 20 MG) PEG SCH (09:00)
[2017-01-21] MEDS ORDERED: FUROSEMIDE 20 MG TABLET PEG SCH (09:00)
[2017-01-21] MEDS ORDERED: MULTIVITAMIN TABLET PO SCH (09:00)
[2017-01-21] MEDS ORDERED: NORTRIPTYLINE 10 MG CAPSULE PO SCH (09:00)
[2017-01-21] MEDS ORDERED: ALLOPURINOL 100 MG TABLET PEG SCH (09:00)
--- NOTE | 2017-01-21 12:13 | Discharge Plan ---
Discharge Plan Disposition: Home Health Service Condition: Stable Prescriptions: fentaNYL 50 MCG PATCH [Duragesic 50mcg patch] 1 patch TD Q72H #10 patch Diet: Regular Activity Restrictions: Activity as Tolerated Shower Restrictions: No Driving Restrictions: Yes (NO DRIVING) Additional Instructions or Follow Up instructions: You were placed in observation because of uncontrollable pain in her back. Your pain is from a vertebral compression fracture in the lumbar spine. It has been present for over 5-6 months and causes you terrible back pain that comes and goes. We have increased your fentanyl patch from 25 mcg to 50 mcg. I know you know this but please be aware that high doses of painkillers can cause sedation and can stop you from breathing. Always discuss with your primary care provider how much medication you are on so that they can adjust your medications accordingly. We know that this is a difficult time for you. You have already adjusted by hiring in-home support several hours a day. We would ask you to start thinking about long-term permanent [id number] care. Follow-Up Care: Home Health - RN, Home Health - PT, Home Health - OT No Smoking: If you smoke, Please STOP! Call for help.
[2017-01-21 12:51] VITALS: BP 128/76
--- NOTE | 2017-01-21 19:42 | DISCHARGE SUMMARY ---
DATE OF ADMISSION: 01/20/2017 DATE OF DISCHARGE: 01/21/2017 DISCHARGE DIAGNOSES: 1. Intractable back pain from #2. 2. Vertebral compression fracture. 3. Hypertension. 4. Type 2 diabetes mellitus, controlled. 5. History of gout. 6. History of esophagitis. DISCHARGE MEDICATIONS: Completely unchanged other than increasing her Duragesic patch from 25 mcg a day to 50 mcg a day. I am also having her hold her Coumadin for 2 days and resume them and have her ProTime checked with her primary care provider or home health. HOSPITAL COURSE: The patient has been discharged from the shelter after having a bout of HSV esophagitis that left her unable to eat with intractable nausea and vomiting. She has been home a very short time and loathes the idea of going back to a shelter. She has many hours of in-home support that is private hire and her also takes care of her. She has chronic back pain from her vertebral compression fracture from many months ago. In the last 2 weeks she has been increasing her activities at home. This resulted in increased back pain. She had her fentanyl increased from 25 to 50, but also had her narcotic for breakthrough pain increased and it resulted in obtundation and over- sedation. So her fentanyl was dropped back down to 25. She now presents to the emergency room with agonizing back pain and unable to move. CT of her back confirmed the same vertebral compression fracture seen before without change. In spite of IV Dilaudid, muscle relaxants, increasing fentanyl to 50, she is still immobile and cannot even transfer to a sitting position. As such, she was placed in observation overnight. She has had some relief of the pain, she is actually able to roll over in bed, but she still cannot sit up on her own. I had physical therapy see her. She moans and grimaces with even simple movement. She is max assist x2. She confirms that she has caregivers from 8-12 and 2-7. She was transferred from a supine to sitting position with max assist x2 and was able to sit at the side of the bed. She attempted to try and stand using a front wheel walker, but was unable to shift hips forward to stand straight. She laid back on the bed. She was then able to be transferred to the bedside chair with via pivot transfer with max assist x1. She sat in her chair and reported pain in her left hip, sat there for a minute and was transferred via back to bed. She is happy that she was at least able to sit up in a chair. She is transferred back to home via BLS and I have ordered home health with PT, OT, and to continue her in-home support as above. She is home bound from immobility from pain. Needs extraordinary effort, ie BLS, to get out of the houe. She has also had increased fentanyl. She is discharged in stable condition and asked to make an appointment with her PCP. Temperature is 37, pulse is 88, blood pressure is low at 92/57 and she says that is normal for her. Respirations 16, 92%. She is a kyphotic scoliotic elderly female, hunched over, but with clear lungs, a regular rate and rhythm. Feet that have trace edema. Very lucid, very good historian. JOB #: [id number] EXT JOB #:[id number] MTDD
== END 2017-01-21 13:00 | disposition home health service (06) ==
LOC: ED 13:47 → MS 19:03
PROVIDERS: ADMIT Specialist; ATTEND Specialist
DX: G89.21 Chronic pain due to trauma (principal); S32.011D Stable burst fracture of first lumbar vertebra, subsequent encounter for fracture with routine healing; X58.XXXD Exposure to other specified factors, subsequent encounter; R79.1 Abnormal coagulation profile; N39.0 Urinary tract infection, site not specified; E11.22 Type 2 diabetes mellitus with diabetic chronic kidney disease; I12.9 Hypertensive chronic kidney disease with stage 1 through stage 4 chronic kidney disease, or unspecified chronic kidney disease; N18.9 Chronic kidney disease, unspecified; M40.205 Unspecified kyphosis, thoracolumbar region; I25.10 Atherosclerotic heart disease of native coronary artery without angina pectoris; E78.5 Hyperlipidemia, unspecified; I73.9 Peripheral vascular disease, unspecified; E46 Unspecified protein-calorie malnutrition; M10.9 Gout, unspecified; M41.9 Scoliosis, unspecified; Z79.01 Long term (current) use of anticoagulants; Z68.23 Body mass index [BMI] 23.0-23.9, adult; Z79.891 Long term (current) use of opiate analgesic; Z87.891 Personal history of nicotine dependence; Z66 Do not resuscitate; Z93.1 Gastrostomy status; Z87.19 Personal history of other diseases of the digestive system
CPT/HCPCS: 36415; 72131; 81001; 85025; 85610; 87077; 87086; 87181; 96361; 96365; 96375; 96376; 97162; 99284; A9270; G0378; G8978; G8979; G8980; J1170; 81003; 96374

== ENCOUNTER 2017-01-21 13:52 | Outpatient (CLI) | payer MEDICARE, OTHER | END 2017-01-21 13:53 | disposition home or self-care (01) | LOC: EMS 13:52 | PROVIDERS: ATTEND Surgery | DX: M54.9 Dorsalgia, unspecified (principal); Z91.81 History of falling | CPT/HCPCS: A0425; A0428 ==

== ENCOUNTER 2017-01-25 16:01 | Outpatient (CLI) | payer MEDICARE, OTHER | END 2017-01-25 16:02 | disposition critical access hospital (66) | LOC: EMS 16:01 | PROVIDERS: ATTEND Surgery | DX: M54.5 Low back pain (principal) | CPT/HCPCS: A0425; A0429 ==

== ENCOUNTER 2017-01-25 16:20 | Inpatient (IN) | payer MEDICARE, OTHER ==
[2017-01-25] MEDS ORDERED: DEXAMETHASONE 10 MG/ML VIAL PO STA (17:34)
[2017-01-25] MEDS ORDERED: oxyCODONE 5 MG TABLET PO STA (17:34)
[2017-01-25] MEDS ORDERED: oxyCODONE 5 MG TABLET ONE (17:36)
[2017-01-25] MEDS ORDERED: CHERRY SYRUP 10 ML UDC PO ONE (17:36)
[2017-01-25] MEDS ORDERED: DEXAMETHASONE 10 MG/ML VIAL ONE (17:36)
--- NOTE | 2017-01-25 17:44 | ED Physician Documentation ---
History of Present Illness - Stated complaint Stated Complaint: BACK PX - Chief complaint Chief Complaint: Back Pain - Additonal information Additional information: hx from pt 81 female suffered a 2 column L1 fx last May saw her on her second visit for same and got a spine consult from [facility] and was advised this is non surgical and a specific brace was recommended and ordered to be delivered to the pts home pt states she cannot wear the brace because i t makes her hurt more she has been in severe pain since has been in and out of SNF/rehab since (for a variety if reasons) lives at home with her has PEG Larson and daily care givers admitted for severe intractable back pain 01/20, dc 01/21 pt PT notes was 99% impaired, was unable to stand or ambulate with 2 person assist, her duragesic patches was inc from 25-50mcg, she was to continue her vicodin and lido patches , she was dced by BLS and carried into the house she has had continued severe lumbar pain no new falls no new numbness weakness no other new complaints today Review of Systems Constitutional: denies: Fever Cardiac: denies: Chest pain / pressure GI: denies: Abdominal Pain Musculoskeletal: reports: Back pain Neurologic: denies: Focal weakness, Numbness Endocrine: reports: Easy bruising / bleeding (coumadin) PD PAST MEDICAL HISTORY - Past Medical History Cardiovascular: Congestive heart failure, Hypertension, High cholesterol, Coronary artery disease, Peripheral Vascular Disease Respiratory: None Neuro: None Endocrine/Autoimmune: Type 2 diabetes, Other GI: Hepatitis : Renal insuffiency HEENT: None Psych: None Musculoskeletal: Gout, Chronic back pain Derm: None - Past Surgical History Past Surgical History: Yes General: Cholecystectomy, Appendectomy, Colonoscopy Ortho: Other - Present Medications Home Medications: Ambulatory Orders Medication Instructions Recorded Confirmed Allopurinol 100 mg PEG DAILY 12/08/13 01/20/17 Levothyroxine [Synthroid] 25 mcg PO DAILY 11/05/15 01/21/17 Multivitamin [Multivitamins] 1 each PEG DAILY 11/05/15 01/20/17 Gabapentin 300 mg PO TID 10/08/16 01/21/17 Hydrocodone/Acetaminophen [Lortab 1 tab PEG BID 10/08/16 01/21/17 5-325 mg Tablet] Lidocaine Patch 5% [Lidoderm Patch] 1 patch TD DAILY 10/08/16 01/20/17 Temazepam [Restoril] 7.5 mg PO QPM 10/08/16 01/20/17 Carbidopa/Levodopa 10/100 [Sinemet 1 tab PEG BID 01/20/17 01/21/17 10 mg/100 mg] Furosemide [Lasix] 20 mg PEG DAILY 01/20/17 01/21/17 Nortriptyline [Pamelor] 10 mg PEG QPM 01/20/17 01/21/17 Warfarin Sodium [Coumadin] 2 mg PEG DAILY 01/20/17 01/20/17 Alendronate Sodium 70 mg PO Q7D 01/21/17 01/21/17 Atenolol [Tenormin] 12.5 mg PO DAILY 01/21/17 01/21/17 Ezetimibe/Simvastatin [Vytorin 1 tab PO DAILY 01/21/17 01/21/17 10-20 mg Tablet] Lisinopril 10 mg PO BID 01/21/17 01/21/17 fentaNYL 50 MCG PATCH [Duragesic 1 patch TD Q72H #10 patch 01/21/17 50mcg patch] - Allergies Allergies/Adverse Reactions: Allergies Allergy/AdvReac Type Severity Reaction Status Date / Time nitrofurantoin Allergy feels sick Verified 01/20/17 14:20 [From Macrobid] nitrofurantoin Allergy feels sick Verified 01/20/17 14:20 macrocrystalline * [From Macrobid] - Social History Does the pt smoke?: No Smoking Status: Former smoker Does the pt drink ETOH?: No Does the pt have substance abuse?: No - Immunizations Immunizations are current?: Yes - POLST Patient has POLST: Yes POLST Status: DNR PD ED PE NORMAL - Vitals Vital signs reviewed: Yes - Neck Neck: Supple, no meningeal sign - Cardiac Cardiac: RRR - Respiratory Respiratory: No respiratory distress, Clear bilaterally - Abdomen Abdomen: Soft, Other (PEG) - Female Female : Other (wears Depends, no saddle anesthesia) - Back Back: Other (bony deformity palp at L1, more tender lower L spine,sacrum region) - Neuro Neuro: No motor deficit, No sensory deficit Results - Vitals Vitals: Vital Signs - 24 hr 06/06/17 06/06/17 06/06/17 16:25 16:35 17:42 Temperature 36.7 C Heart Rate 89 84 Respiratory 20 16 Rate Blood Pressure 120/45 L 115/41 L O2 Saturation 88 L 94 98 01/25/17 19:58 Temperature Heart Rate 72 Respiratory Rate Blood Pressure 92/56 L O2 Saturation 95 Oxygen O2 Source [With Activity] Nasal cannula O2 Source Room air PD MEDICAL DECISION MAKING - ED course ED course: spoke with [facility] again to see if any intervention of rec they might have will try decadron for nerve inflammation called [facility] spine consult - given that her fracture was approx 8 m ago no need to emergently transfer but transfer center assisted me in submitting an outpt consult which I have done (and requested recommendations to be sent to Dr Dennison her PMD) (and i spoke to Dr Dennison to update him ) pt is apparently doing better after decadron (she did not take the oxycodone) she is sleeping now and does not awaken to gently palpating her back and moving her legs states the caregivers have gone home for the day and he is afraid to take her home alone and have her be crying in pain all night again - spoke to house fredi Joshua who states severe pain could be admitted - will ask hospitalist to consult for admission - if steroids do indeed provide some relief and pt is more mobile tomorrow and the caregivers are at the house again and has [facility] fup arranged by my consult she could probably go home, so would be observation for tonight - Dr Cobb evaluated pt and will admit Departure - Departure Disposition: ED Place in Observation Clinical Impression: Closed compression fracture of L1 lumbar vertebra Follow-Up: Mehreen Dennison MD [Primary Care Provider] -
[2017-01-25] MEDS ORDERED: SODIUM CHLORIDE FLUSH 0.9% 10 ML SYRINGE IVP PRN (20:12)
[2017-01-25] MEDS ORDERED: ONDANSETRON 4 MG/2 ML VIAL IVP PRN (20:12)
[2017-01-25] MEDS ORDERED: SODIUM CHLORIDE 0.9% 1,000 ML IV SCH (21:00)
[2017-01-25] MEDS: SODIUM CHLORIDE FLUSH 0.9% 10 ML SYRINGE IVP SCH (21:59)
[2017-01-25] MEDS: fentaNYL 50 MCG PATCH TOP SCH (22:01)
[2017-01-25] MEDS: GABAPENTIN 300 MG CAPSULE PO SCH (22:01)
--- NOTE | 2017-01-26 00:29 | HISTORY & PHYSICAL EXAMINATION ---
DATE OF OBSERVATION: 01/25/2017 PRIMARY CARE PHYSICIAN: Mehreen Dennison MD CHIEF COMPLAINT: Intractable lower back pain. HISTORY OF PRESENT ILLNESS: This is a 81-year-old female who was recently discharged from [facility] January 21, was admitted January 20; she came in at that time with intractable back pain se condary to vertebral compression fracture which occurred back in May. She was seen by [facility] annamarie here, and they increased her Duragesic patch from 25 to 50 mcg daily. She was discharged previously from a shelter, when she was there for a bout of HSV esophagitis. She had intractable nausea and vomiting, and had a PEG tube placed at that time. It was approximately , according to the , about [address] Le, ER physician, did send previous images down to [facility], and they will rev iew those and possibly see the patient as an outpatient, or, if needed, as an inpatient. The patient was given oral dexamethasone 10 mg in the ER. Please see discharge summary for further details. PAST MEDICAL HISTORY 1. History of chronic back pain with burst vertebral fracture 05/2016. CT of lumbar spine without con trast done admission 01/20/2017 revealed chronic L1 burst fracture with retropulsion of fragments int o the spinal canal, which has narrowed to measure 6 mm; no new fractures noted. The patient is osteop enic. Had diffuse degenerative disk disease, 3 mm of L2 on L3 retrolisthesis and 9 mm of L4 on L5 ant erior listhesis likely due to degenerative origin. 2. 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 3. Hypertension. 4. Hyperlipidemia. 5. Coronary artery disease. 6. Peripheral vascular disease. 7. Type 2 diabetes. 8. Gout. 9. Chronic back pain. 10. History of chronic kidney disease. PAST SURGICAL HISTORY Includes: 1. Cholecystectomy. 2. Appendectomy. SOCIAL HISTORY: Patient lives with . Former smoker, quit around 1999. FAMILY MEDICAL HISTORY: Parents of old age. Siblings are all . Children are healthy. REVIEW OF SYSTEMS: No fevers or chills. No chest pain or cough. All other review of systems are revie wed and negative except as in HPI. PHYSICAL EXAMINATION VITAL SIGNS: Temperature is afebrile, heart rate 82, blood pressure 112/87, respiratory rate is 14, r oom air saturation 98%. CONSTITUTIONAL: An elderly woman who is slightly lethargic currently after getting some medication. HEENT: Head normocephalic, atraumatic. Eyes: PERRLA-DC, EOMI. Mouth: No lesions. NECK: No adenopathy. CHEST: Clear to auscultation. COR: Regular rate and rhythm, S1, S2 without murmur. ABDOMEN: Soft, nontender. Bowel sounds present. EXTREMITIES: No pedal edema. SKIN: No rashes. PSYCHIATRIC: Difficult to assess. NEUROLOGIC: She is alert and oriented; can move both legs. ASSESSMENT AND PLAN 1. Intractable pain from vertebral compression fracture L1 since 05/2016. We will go ahead and place her in observation status. [facility] has information per ER MD regarding this patient. We will get p hysical therapy consult and a social human services assistants consult for possible placement. 2. Hypertension, well controlled. Continue her usual medication regimen. 3. Type 2 diabetes, chronic. Check q.i.d. blood sugars. 4. History of herpes simplex virus esophagitis with PEG tube; gets tube feedings through this. We bony l need to get information regarding what exactly she is taking. 5. Code status. Patient is DNR/DNI. 6. Deep venous thrombosis prophylaxis. Use SCDs. Patient is also on Coumadin therapy. We will check I NR, as she was supratherapeutic at last visit. TIME SPENT: 60 minutes. JOB #: [id number] EXT JOB #:[id number]
[2017-01-26] MEDS: SODIUM CHLORIDE FLUSH 0.9% 10 ML SYRINGE IVP SCH ×4 (05:41→22:45)
[2017-01-26] MEDS: MORPHINE SOL 10 MG/0.5 ML SYRINGE PO PRN ×4 (05:51→21:35)
[2017-01-26] MEDS: GABAPENTIN 300 MG CAPSULE PO SCH ×3 (05:55→21:39)
[2017-01-26 06:02] LABS: BASOPHILS % (AUTO) 0.1 %; HCT - HEMATOCRIT 35.3 % (37.0-47.0); HGB - HEMOGLOBIN 11.5 g/dL (12.0-16.0); LYMPHOCYTES % (AUTO) 6.8 %; MEAN CORPUSCULAR HEMOGLOBIN 28.8 pg (27.0-31.0); MEAN CORPUSCULAR HGB CONC 32.5 g/dL (32.0-36.0); MEAN CORPUSCULAR VOLUME 88.6 fL (81.0-99.0); MEAN PLATELET VOLUME 7.1 fL (7.9-10.8); MONOCYTES % (AUTO) 1.3 %; NEUTROPHILS % (AUTO) 91.8 %; RED BLOOD COUNT 3.98 10^6/uL (4.20-5.40); RED CELL DISTRIBUTION WIDTH 15.8 % (12.0-15.0); UNCORRECTED WHITE BLOOD COUNT 15.5 x10^3/uL; WHITE BLOOD COUNT 15.5 x10^3/uL (4.8-10.8)
[2017-01-26 06:06] LABS: PT - PROTHROMBIN TIME 58.2 secs (9.9-12.6)
[2017-01-26 06:13] LABS: ALBUMIN/GLOBULIN RATIO 0.6 (1.0-2.2); BILIRUBIN,TOTAL 0.4 mg/dL (0.2-1.0); CALCIUM 9.3 mg/dL (8.5-10.3); CREATININE 1.1 mg/dL (0.4-1.0); POTASSIUM 5.1 mmol/L (3.5-5.0); TOTAL PROTEIN 6.1 g/dL (6.7-8.2)
[2017-01-26 06:21] LABS: INR 5.1 (0.8-1.2)
[2017-01-26] MEDS: LEVOTHYROXINE 25 MCG TABLET PO SCH (06:26)
[2017-01-26 06:35] LABS: BAND NEUTROPHILS % (MANUAL) 8 %; LYMPHOCYTES % (MANUAL) 11 %; NEUTROPHILS % (MANUAL) 75 %; PLATELET ESTIMATE, MANUAL NORMAL (130-450,000) (NORMAL); TOTAL CELLS COUNTED 100
[2017-01-26 06:42] LABS: NP AUTO DIFFERENTIAL? YES
[2017-01-26 06:43] LABS: NP MAN DIFFERENTIAL? NO
[2017-01-26] MEDS ORDERED: HYDROcod/ACETAM 5/325 MG TABLET PO SCH (09:00)
[2017-01-26] MEDS: ALLOPURINOL 100 MG TABLET PEG SCH (09:24)
[2017-01-26] MEDS: LISINOPRIL 5 MG TABLET PO SCH ×2 (09:25→21:38)
[2017-01-26] MEDS: ATENOLOL 25 MG TABLET PO SCH (09:25)
[2017-01-26] MEDS: MULTIVITAMIN TABLET PO SCH (09:25)
[2017-01-26] MEDS: POLYETHYLENE GLYCOL 3350 17 GM PACKET PO SCH ×2 (09:25→09:27)
[2017-01-26] MEDS: LIDOCAINE PATCH 5% TOP SCH (09:26)
[2017-01-26] MEDS: CARBIDOPA/LEVODOPA 10 MG/100 MG TABLET PO SCH ×2 (11:34→21:42)
--- NOTE | 2017-01-26 12:27 | PROVIDER PROGRESS NOTE ---
Assessment/Plan - Problem List (1) Exacerbation of chronic back pain Assessment/Plan: PT with second admission this week for back pain. She was discharged on 01/22/17 with a similar presentation. She went home with home health. HEr does not think he can manage at home even with help due to pain and increased need for assistance. Plan:Will evaluate for long-term placement. Increase pain medication to Q6H from Q12 hours. Maybe this will help enough to allow her to return home. Physical Therapy will assess after she has some time on new regimen. (2) Closed compression fracture of L1 lumbar vertebra Assessment/Plan: Intractable pain from fracture. Pt is on gabapentin, fentanyl patch and PRN pain medications. Continues to complain of pain and states she is unable to perform ADL and has trouble participating in her therapies. Plan: Increased pain medications. Monitor for improvements and adjust medications further as needed. . 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 PT is on tube feedings with a consistent carbohydrate formula. Not currently on insulin or BG checks. Plan: Monitor BG Q AC and HS. Will add Insulin correction scale PRN. (4) Elevated INR Assessment/Plan: [facility] OAC use. INR elevated at 5.1 Likely her poor PO intake is contributing to elevated INR levels the last 2 admissions. She may be a better candidate from one of the newer agents as they are not altered by dietary intake. Will continue to monitor INR> Warfarin held today - Current Meds Current Meds: Current Medications Generic Name Dose Route Start Last Admin Trade Name Freq PRN Reason Stop Dose Admin Acetaminophen/Hydrocodone Bitart 1 tab 01/26/17 09:00 01/26/17 09:26 Lawrence 5/325 PO 1 tab BID MARYBETH Administration Allopurinol 100 mg 01/26/17 09:00 01/26/17 09:24 Zyloprim PEG 100 mg DAILY MARYBETH Administration Atenolol 12.5 mg 01/26/17 09:00 01/26/17 09:25 Tenormin PO 12.5 mg DAILY MARYBETH Administration Carbidopa/Levodopa 1 tab 01/26/17 09:00 01/26/17 11:34 Sinemet 10 Mg/100 Mg PO 1 tab BID MARYBETH Administration Fentanyl 1 patch 01/25/17 22:00 01/25/17 22:01 Duragesic TOP 1 patch Q72H MARYBETH Administration Gabapentin 300 mg 01/25/17 22:00 01/26/17 05:55 Neurontin PO 300 mg TID MARYBETH Administration Levothyroxine Sodium 25 mcg 01/26/17 07:00 01/26/17 06:26 Synthroid PO 25 mcg QDAC MARYBETH Administration Lidocaine 1 patch 01/26/17 09:00 01/26/17 09:26 Lidoderm Patch TOP 1 patch DAILY MARYBETH Administration Lisinopril 10 mg 01/26/17 09:00 01/26/17 09:25 Zestril PO 10 mg BID MARYBETH Administration Morphine Sulfate 10 mg 01/25/17 22:44 01/26/17 11:35 Roxanol PO 10 mg Q2HR PRN Administration PAIN Multivitamins 1 tab 01/26/17 09:00 01/26/17 09:25 Theragran PO 1 tab DAILY MARYBETH Administration Polyethylene Glycol 17 gm 01/26/17 09:00 01/26/17 09:27 Miralax PO 17 gm DAILY MARYBETH Administration Sodium Chloride 10 ml 01/25/17 22:00 01/26/17 05:41 Normal Saline Flush 0.9% IVP Not Given Q8HR MARYBETH - Lab Result Lab results reviewed: Yes Fish Bone Diagrams: 01/26/17 05:22 01/26/17 05:22 - Additional Planning Condition/Complexity: Stable My Orders: My Active Orders 01/26/17 08:59 Daily Weight [RC] DAILY IO [RC] QSHIFT Tube Feeding [RC] QSHIFT 01/26/17 10:29 Admit \ Transfer \ Status [RC] ONCE 01/27/17 05:00 COMPREHENSIVE METABOLIC PANEL [CHEM] Timed MAGNESIUM [CHEM] Timed PHOSPHORUS [CHEM] Timed PREALBUMIN [CHEM] Timed 01/29/17 05:00 COMPREHENSIVE METABOLIC PANEL [CHEM] Timed MAGNESIUM [CHEM] Timed PHOSPHORUS [CHEM] Timed PREALBUMIN [CHEM] Timed 02/01/17 05:00 COMPREHENSIVE METABOLIC PANEL [CHEM] Timed MAGNESIUM [CHEM] Timed PHOSPHORUS [CHEM] Timed PREALBUMIN [CHEM] Timed Plan Discussed with:: Patient, Family Time Spent: 15-30 minutes Subjective - Subjective Patient Reports: Pain (PT states her pain is not controlled. She has concerns with care at home even with help form home Health dueto pain. She is not able to perform ADL.) Nursing Reports: Pain Objective Vital Signs: Vital Signs - 24 hr 01/25/17 01/25/17 01/26/17 21:08 21:23 00:15 Temperature 37.0 C 36.8 C Heart Rate 82 Heart Rate [ 73 72 Brachial] Respiratory 14 17 18 Rate Blood Pressure 112/87 H Blood Pressure [Left Brachial artery] Blood Pressure 103/65 126/71 [Left Radial artery] O2 Saturation 98 94 93 01/26/17 01/26/17 05:00 08:15 Temperature 36.1 C L 35.0 C L Heart Rate Heart Rate [ 70 69 Brachial] Respiratory 18 16 Rate Blood Pressure Blood Pressure 116/72 [Left Brachial artery] Blood Pressure 106/67 [Left Radial artery] O2 Saturation 93 97 Oxygen O2 Source Room air I&O (Last 24 Hrs): Intake and Output Totals x24h 01/24/17 01/25/17 01/26/17 23:59 23:59 23:59 Intake Total 60 60 Output Total 15 Balance 60 45 General: Alert, Oriented x3 HEENT: PERRLA, EOMI Neck: Supple, No JVD, No LAD Neuro: Alert, CN 2-12 Grossly Intact, Oriented Times 3 Cardiovascular: Regular rate, No murmurs Respiratory: Chest non-tender, No respiratory distress, Breath sounds nml Abdomen: Normal bowel sounds Extremities: No edema, Normal pulses - Results Results: Laboratory Results WBC 15.5 x10^3/uL (4.8-10.8) H 01/26/17 05:22 RBC 3.98 10^6/uL (4.20-5.40) L 01/26/17 05:22 Hgb 11.5 g/dL (12.0-16.0) L 01/26/17 05:22 Hct 35.3 % (37.0-47.0) L 01/26/17 05:22 MCV 88.6 fL (81.0-99.0) 01/26/17 05:22 MCH 28.8 pg (27.0-31.0) 01/26/17 05:22 MCHC 32.5 g/dL (32.0-36.0) 01/26/17 05:22 RDW 15.8 % (12.0-15.0) H 01/26/17 05:22 Plt Count 288 10^3/uL (130-450) 01/26/17 05:22 MPV 7.1 fL (7.9-10.8) L 01/26/17 05:22 Neut # DISASTER DIRECTOR 01/26/17 05:22 Lymph # DISASTER DIRECTOR 01/26/17 05:22 [place] # DISASTER DIRECTOR 01/26/17 05:22 Eos # DISASTER DIRECTOR 01/26/17 05:22 Baso # DISASTER DIRECTOR 01/26/17 05:22 Absolute Nucleated RBC DISASTER DIRECTOR 01/26/17 05:22 Total Counted 100 01/26/17 05:22 Band Neuts % (Manual) 8 % (0-10) 01/26/17 05:22 Metamyelocytes % 2 % (-0) H 01/26/17 05:22 Myelocytes % 3 % (-0) H 01/26/17 05:22 Neutrophils # (Manual) 12.9 10^3/uL (1.5-6.6) H 01/26/17 05:22 Lymphocytes # (Manual) 1.7 10^3/uL (1.5-3.5) 01/26/17 05:22 Monocytes # (Manual) 0.2 10^3/uL (0.0-1.0) 01/26/17 05:22 Nucleated RBCs DISASTER DIRECTOR 01/26/17 05:22 Differential Comment MANUAL DIFFERENTIAL 01/26/17 05:22 Platelet Estimate NORMAL (130-450,000) (NORMAL) 01/26/17 05:22 RBC Morph Micro Appear NORMAL APPEARANCE (NORMAL) 01/26/17 05:22 PT 58.2 secs (9.9-12.6) H 01/26/17 05:22 INR 5.1 (0.8-1.2) H* 01/26/17 05:22 Sodium 135 mmol/L (135-145) 01/26/17 05:22 Potassium 5.1 mmol/L (3.5-5.0) H 01/26/17 05:22 Chloride 98 mmol/L (101-111) L 01/26/17 05:22 Carbon Dioxide 27 mmol/L (21-32) 01/26/17 05:22 Anion Gap 10.0 (6-13) 01/26/17 05:22 BUN 66 mg/dL (6-20) H 01/26/17 05:22 Creatinine 1.1 mg/dL (0.4-1.0) H 01/26/17 05:22 Estimated GFR (MDRD) 48 (>89) L 01/26/17 05:22 Glucose 213 mg/dL (70-100) H 01/26/17 05:22 Calcium 9.3 mg/dL (8.5-10.3) 01/26/17 05:22 Total Bilirubin 0.4 mg/dL (0.2-1.0) 01/26/17 05:22 AST 21 IU/L (10-42) 01/26/17 05:22 ALT 17 IU/L (10-60) 01/26/17 05:22 Alkaline Phosphatase 55 IU/L (42-121) 01/26/17 05:22 Total Protein 6.1 g/dL (6.7-8.2) L 01/26/17 05:22 Albumin 2.2 g/dL (3.2-5.5) L 01/26/17 05:22 Globulin 3.9 g/dL (2.1-4.2) 01/26/17 05:22 Albumin/Globulin Ratio 0.6 (1.0-2.2) L 01/26/17 05:22 - Procedures Procedures: Procedures APPLIC OF EXTERNAL FIXATOR DEVICE, RADIUS AND ULNA (12/13/13) CL RED-INT FIX RAD/ULNA (12/13/13) EXCISION OF LOWER ESOPHAGUS, ENDO, DIAGN (10/09/16) EXCISION OF STOMACH, ENDO, DIAGN (10/09/16) EXCISION OF UPPER ESOPHAGUS, ENDO, DIAGN (10/09/16) INSERTION OF INFUSION DEV INTO SUP VENA CAVA, PERC APPROACH (10/09/16)
[2017-01-26] MEDS: ACETAMINOPHEN 325 MG TABLET PO PRN (12:40)
[2017-01-26] MEDS: HYDROcod/ACETAM 5/325 MG TABLET PO SCH ×2 (13:36→18:44)
[2017-01-26] MEDS: INSULIN REGULAR HUMAN 100 UNIT/1 ML 10 ML MDV SUBQ SCH ×2 (13:57→19:27)
[2017-01-26] MEDS ORDERED: WARFARIN 1 MG TABLET PEG SCH (14:00)
[2017-01-26] MEDS: TEMAZEPAM 7.5 MG CAPSULE PO SCH (21:36)
[2017-01-26] MEDS: NORTRIPTYLINE 10 MG CAPSULE PO SCH (21:37)
[2017-01-26] MEDS: ATORVASTATIN 10 MG TABLET PO SCH (21:38)
[2017-01-26] MEDS: EZETIMIBE 10 MG TABLET PO SCH (21:38)
[2017-01-27] MEDS: INSULIN REGULAR HUMAN 100 UNIT/1 ML 10 ML MDV SUBQ SCH ×4 (01:16→18:30)
[2017-01-27] MEDS: HYDROcod/ACETAM 5/325 MG TABLET PO SCH ×4 (01:17→18:23)
[2017-01-27 06:28] LABS: ALBUMIN/GLOBULIN RATIO 0.7 (1.0-2.2); BILIRUBIN,TOTAL < 0.2 mg/dL (0.2-1.0); BUN - BLOOD UREA NITROGEN 68 mg/dL (6-20); CALCIUM 9.4 mg/dL (8.5-10.3); CARBON DIOXIDE - CO2 30 mmol/L (21-32); CHLORIDE 96 mmol/L (101-111); GFR - MDRD 53 (>89); GLUCOSE 210 mg/dL (70-100); MAGNESIUM 2.2 mg/dL (1.7-2.8); PHOSPHORUS 2.8 mg/dL (2.5-4.6); POTASSIUM 4.9 mmol/L (3.5-5.0); PREALBUMIN 13 mg/dL (18-45); SODIUM 136 mmol/L (135-145); TOTAL PROTEIN 5.5 g/dL (6.7-8.2)
[2017-01-27] MEDS: SODIUM CHLORIDE FLUSH 0.9% 10 ML SYRINGE IVP SCH ×3 (06:33→21:48)
[2017-01-27] MEDS: LEVOTHYROXINE 25 MCG TABLET PO SCH (06:34)
[2017-01-27] MEDS: GABAPENTIN 300 MG CAPSULE PO SCH ×3 (06:34→21:46)
[2017-01-27] MEDS: ALLOPURINOL 100 MG TABLET PEG SCH (10:56)
[2017-01-27] MEDS: MULTIVITAMIN TABLET PO SCH (10:56)
[2017-01-27] MEDS: LIDOCAINE PATCH 5% TOP SCH (10:57)
[2017-01-27] MEDS: LISINOPRIL 5 MG TABLET PO SCH ×2 (10:57→21:46)
[2017-01-27] MEDS: CARBIDOPA/LEVODOPA 10 MG/100 MG TABLET PO SCH ×2 (10:57→21:46)
[2017-01-27] MEDS: ATENOLOL 25 MG TABLET PO SCH (10:57)
[2017-01-27] MEDS: POLYETHYLENE GLYCOL 3350 17 GM PACKET PO SCH (10:58)
[2017-01-27] MEDS: MORPHINE SOL 10 MG/0.5 ML SYRINGE PO PRN ×2 (15:24→21:46)
--- NOTE | 2017-01-27 17:01 | PROVIDER PROGRESS NOTE ---
Assessment/Plan - Problem List (1) Exacerbation of chronic back pain Assessment/Plan: Pain is not controlled on current medications regimen. She is doing ok while laying in bed but complains of 10/10 pain with activity and getting up out of bed. PT has No IV access making acute pain control more difficult. Plan: Continue to work on pain medications,. Will add Robaxin today for spasms. Also adding Ativan to help with some of the anxiety associated with movement. PT needs to mobilize. She has resisted due to fear of pain however I believe this is going to make things worse as muscles tighten up and weaken from lack of mobility. (2) Closed compression fracture of L1 lumbar vertebra Assessment/Plan: Intractable pain from fracture. Pt is on gabapentin, fentanyl patch and PRN pain medications. Continues to complain of pain and states she is unable to perform ADL and has trouble participating in her therapies. Plan: Add muscle relaxer and ativan. Increase activity. She needs to be up out of bed at least TID (3) Diabetes Qualifiers: Diabetes mellitus type: type 2 Assessment/Plan: rat exterminator DMII. PT is on tube feedings with a consistent carbohydrate formula. Not currently on insulin or BG checks. Plan: Monitor BG Q AC and HS. Adjust insulin as needed. (4) Elevated INR Assessment/Plan: Warfarin for PE. INR elevated on admission. Plan Continue to monitor. Holding dose today - Current Meds Current Meds: Current Medications Generic Name Dose Route Start Last Admin Trade Name Freq PRN Reason Stop Dose Admin Acetaminophen 650 mg 01/25/17 20:12 01/26/17 12:40 Tylenol PO 650 mg Q4HR PRN Administration Pain 1 to 4 Acetaminophen/Hydrocodone Bitart 1 tab 01/26/17 13:00 01/27/17 13:13 [place] 5/325 PO 1 tab Q6H MARYBETH Administration Allopurinol 100 mg 01/26/17 09:00 01/27/17 10:56 Zyloprim PEG 100 mg DAILY MARYBETH Administration Atenolol 12.5 mg 01/26/17 09:00 01/27/17 10:57 Tenormin PO 12.5 mg DAILY MARYBETH Administration Atorvastatin Calcium 10 mg 01/26/17 21:00 01/26/17 21:38 Lipitor PO 10 mg QPM MARYBETH Administration Carbidopa/Levodopa 1 tab 01/26/17 09:00 01/27/17 10:57 Sinemet 10 Mg/100 Mg PO 1 tab BID MARYBETH Administration Ezetimibe 10 mg 01/26/17 21:00 01/26/17 21:38 Zetia PO 10 mg QPM MARYBETH Administration Fentanyl 1 patch 01/25/17 22:00 01/25/17 22:01 Duragesic TOP 1 patch Q72H MARYBETH Administration Gabapentin 300 mg 01/25/17 22:00 01/27/17 13:13 Neurontin PO 300 mg TID MARYBETH Administration Insulin Human Regular 1 - 9 unit 01/26/17 13:00 01/27/17 12:48 Novolin R SUBQ 1 unit Q6HR MARYBETH Administration Protocol Levothyroxine Sodium 25 mcg 01/26/17 07:00 01/27/17 06:34 Synthroid PO 25 mcg QDAC MARYBETH Administration Lidocaine 1 patch 01/26/17 09:00 01/27/17 10:57 Lidoderm Patch TOP 1 patch DAILY MARYBETH Administration Lisinopril 10 mg 01/26/17 09:00 01/27/17 10:57 Zestril PO 10 mg BID MARYBETH Administration Morphine Sulfate 10 mg 01/25/17 22:44 01/27/17 15:24 Roxanol PO 10 mg Q2HR PRN Administration PAIN Multivitamins 1 tab 01/26/17 09:00 01/27/17 10:56 Theragran PO 1 tab DAILY MARYBETH Administration Nortriptyline HCl 10 mg 01/26/17 21:00 01/26/17 21:37 Pamelor PO 10 mg QPM MARYBETH Administration Polyethylene Glycol 17 gm 01/26/17 09:00 01/27/17 10:58 Miralax PO Not Given DAILY MARYBETH Sodium Chloride 10 ml 01/25/17 22:00 01/27/17 15:10 Normal Saline Flush 0.9% IVP Not Given Q8HR MARYBETH Temazepam 7.5 mg 01/26/17 21:00 01/26/17 21:36 Restoril PO 7.5 mg QPM MARYBETH Administration - Lab Result Lab results reviewed: Yes Fish Bone Diagrams: 01/26/17 05:22 01/27/17 05:20 - Additional Planning Condition/Complexity: Stable My Orders: My Active Orders 01/27/17 15:45 Methocarbamol [Robaxin] 500 mg PO Q6HR PRN 01/27/17 15:52 LORazepam [Ativan] 0.5 mg PO Q6H PRN 01/29/17 05:00 COMPREHENSIVE METABOLIC PANEL [CHEM] Timed MAGNESIUM [CHEM] Timed PHOSPHORUS [CHEM] Timed PREALBUMIN [CHEM] Timed 02/01/17 05:00 COMPREHENSIVE METABOLIC PANEL [CHEM] Timed MAGNESIUM [CHEM] Timed PHOSPHORUS [CHEM] Timed PREALBUMIN [CHEM] Timed Plan Discussed with:: Patient Time Spent: 15-30 minutes Subjective - Subjective Patient Reports: Other (PT complains of pain with activity. She was doing well today and sleeping comfortably until she needed to move.) Nursing Reports: Pain Objective Vital Signs: Vital Signs - 24 hr 01/26/17 01/27/17 01/27/17 21:00 01:00 05:00 Temperature 36.1 C L 36.0 C L 36.2 C L Heart Rate [ 79 74 65 Brachial] Respiratory 18 16 16 Rate Blood Pressure 127/69 139/65 H 115/63 [Left Brachial artery] O2 Saturation 94 99 95 01/27/17 01/27/17 08:52 12:25 Temperature 36.0 C L 36.1 C L Heart Rate [ 65 78 Brachial] Respiratory 18 18 Rate Blood Pressure 105/53 L 119/55 L [Left Brachial artery] O2 Saturation 95 97 Oxygen O2 Source Nasal cannula I&O (Last 24 Hrs): Intake and Output Totals x24h 01/25/17 01/26/17 01/27/17 23:59 23:59 23:59 Intake Total 60 1037 999 Output Total 15 10 Balance 60 1022 989 General: Alert, Oriented x3 HEENT: PERRLA, EOMI Neck: No JVD Neuro: Alert Cardiovascular: Regular rate Respiratory: Chest non-tender, No respiratory distress Extremities: No edema Skin: No rashes, No breakdown - Results Results: Laboratory Results WBC 15.5 x10^3/uL (4.8-10.8) H 01/26/17 05:22 RBC 3.98 10^6/uL (4.20-5.40) L 01/26/17 05:22 Hgb 11.5 g/dL (12.0-16.0) L 01/26/17 05:22 Hct 35.3 % (37.0-47.0) L 01/26/17 05:22 MCV 88.6 fL (81.0-99.0) 01/26/17 05:22 MCH 28.8 pg (27.0-31.0) 01/26/17 05:22 MCHC 32.5 g/dL (32.0-36.0) 01/26/17 05:22 RDW 15.8 % (12.0-15.0) H 01/26/17 05:22 Plt Count 288 10^3/uL (130-450) 01/26/17 05:22 MPV 7.1 fL (7.9-10.8) L 01/26/17 05:22 Neut # ARCHITECTURAL INTERN 01/26/17 05:22 Lymph # ARCHITECTURAL INTERN 01/26/17 05:22 [place] # ARCHITECTURAL INTERN 01/26/17 05:22 Eos # ARCHITECTURAL INTERN 01/26/17 05:22 Baso # ARCHITECTURAL INTERN 01/26/17 05:22 Absolute Nucleated RBC ARCHITECTURAL INTERN 01/26/17 05:22 Total Counted 100 01/26/17 05:22 Band Neuts % (Manual) 8 % (0-10) 01/26/17 05:22 Metamyelocytes % 2 % (-0) H 01/26/17 05:22 Myelocytes % 3 % (-0) H 01/26/17 05:22 Neutrophils # (Manual) 12.9 10^3/uL (1.5-6.6) H 01/26/17 05:22 Lymphocytes # (Manual) 1.7 10^3/uL (1.5-3.5) 01/26/17 05:22 Monocytes # (Manual) 0.2 10^3/uL (0.0-1.0) 01/26/17 05:22 Nucleated RBCs ARCHITECTURAL INTERN 01/26/17 05:22 Differential Comment MANUAL DIFFERENTIAL 01/26/17 05:22 Platelet Estimate NORMAL (130-450,000) (NORMAL) 01/26/17 05:22 RBC Morph Micro Appear NORMAL APPEARANCE (NORMAL) 01/26/17 05:22 PT 58.2 secs (9.9-12.6) H 01/26/17 05:22 INR 5.1 (0.8-1.2) H* 01/26/17 05:22 Sodium 136 mmol/L (135-145) 01/27/17 05:20 Potassium 4.9 mmol/L (3.5-5.0) 01/27/17 05:20 Chloride 96 mmol/L (101-111) L 01/27/17 05:20 Carbon Dioxide 30 mmol/L (21-32) 01/27/17 05:20 Anion Gap 10.0 (6-13) 01/27/17 05:20 BUN 68 mg/dL (6-20) H 01/27/17 05:20 Creatinine 1.0 mg/dL (0.4-1.0) 01/27/17 05:20 Estimated GFR (MDRD) 53 (>89) L 01/27/17 05:20 Glucose 210 mg/dL (70-100) H 01/27/17 05:20 POC Whole Bld Glucose 179 mg/dL (70 - 100) H 01/27/17 11:36 Calcium 9.4 mg/dL (8.5-10.3) 01/27/17 05:20 Phosphorus 2.8 mg/dL (2.5-4.6) 01/27/17 05:20 Magnesium 2.2 mg/dL (1.7-2.8) 01/27/17 05:20 Total Bilirubin < 0.2 mg/dL (0.2-1.0) L 01/27/17 05:20 AST 19 IU/L (10-42) 01/27/17 05:20 ALT 13 IU/L (10-60) 01/27/17 05:20 Alkaline Phosphatase 53 IU/L (42-121) 01/27/17 05:20 Total Protein 5.5 g/dL (6.7-8.2) L 01/27/17 05:20 Albumin 2.2 g/dL (3.2-5.5) L 01/27/17 05:20 Globulin 3.3 g/dL (2.1-4.2) 01/27/17 05:20 Albumin/Globulin Ratio 0.7 (1.0-2.2) L 01/27/17 05:20 Prealbumin 13 mg/dL (18-45) L 01/27/17 05:20 - Procedures Procedures: Procedures APPLIC OF EXTERNAL FIXATOR DEVICE, RADIUS AND ULNA (12/13/13) CL RED-INT FIX RAD/ULNA (12/13/13) EXCISION OF LOWER ESOPHAGUS, ENDO, DIAGN (02/18/17) EXCISION OF STOMACH, ENDO, DIAGN (10/09/16) EXCISION OF UPPER ESOPHAGUS, ENDO, DIAGN (10/09/16) INSERTION OF INFUSION DEV INTO SUP VENA CAVA, PERC APPROACH (10/09/16)
[2017-01-27] MEDS: METHOCARBAMOL 500 MG TABLET PO PRN (18:23)
[2017-01-27] MEDS: LORazepam 0.5 MG TABLET PO PRN (18:23)
[2017-01-27] MEDS: TEMAZEPAM 7.5 MG CAPSULE PO SCH (21:46)
[2017-01-27] MEDS: ATORVASTATIN 10 MG TABLET PO SCH (21:46)
[2017-01-27] MEDS: EZETIMIBE 10 MG TABLET PO SCH (21:47)
[2017-01-27] MEDS: NORTRIPTYLINE 10 MG CAPSULE PO SCH (21:47)
[2017-01-28] MEDS: HYDROcod/ACETAM 5/325 MG TABLET PO SCH ×4 (01:56→19:41)
[2017-01-28] MEDS: GABAPENTIN 300 MG CAPSULE PO SCH ×3 (05:07→21:47)
[2017-01-28] MEDS: MORPHINE SOL 10 MG/0.5 ML SYRINGE PO PRN ×5 (05:07→15:45)
[2017-01-28] MEDS: METHOCARBAMOL 500 MG TABLET PO PRN ×2 (05:07→19:41)
[2017-01-28] MEDS: LORazepam 0.5 MG TABLET PO PRN ×2 (05:39→16:05)
[2017-01-28] MEDS: SODIUM CHLORIDE FLUSH 0.9% 10 ML SYRINGE IVP SCH ×3 (05:57→21:56)
[2017-01-28] MEDS: LEVOTHYROXINE 25 MCG TABLET PO SCH (06:04)
[2017-01-28] MEDS: INSULIN REGULAR HUMAN 100 UNIT/1 ML 10 ML MDV SUBQ SCH ×4 (06:04→21:39)
[2017-01-28 07:50] LABS: PT - PROTHROMBIN TIME 112.3 secs (9.9-12.6)
[2017-01-28 08:02] LABS: INR 9.8 (0.8-1.2)
[2017-01-28] MEDS: LISINOPRIL 5 MG TABLET PO SCH ×2 (09:05→21:47)
[2017-01-28] MEDS: ATENOLOL 25 MG TABLET PO SCH (09:05)
[2017-01-28] MEDS: POLYETHYLENE GLYCOL 3350 17 GM PACKET PO SCH (09:05)
[2017-01-28] MEDS: ALLOPURINOL 100 MG TABLET PEG SCH (09:05)
[2017-01-28] MEDS: MULTIVITAMIN TABLET PO SCH (09:05)
[2017-01-28] MEDS: CARBIDOPA/LEVODOPA 10 MG/100 MG TABLET PO SCH ×2 (09:05→21:47)
[2017-01-28] MEDS: LIDOCAINE PATCH 5% TOP SCH (09:06)
--- NOTE | 2017-01-28 12:35 | PROVIDER PROGRESS NOTE ---
Assessment/Plan - Problem List (1) Exacerbation of chronic back pain Assessment/Plan: Continues to have pain control issues./ PT is not mobilizing as recommended due to fear of pain. She will benefit from increased mobility. Pt needs to get out of bed at least 3 times daily. Unclear if we can actually get her to cooperate with this request as she is refusing when I talk to her. Plan: Continue pain medications, Encourage UOB. PT will need SNF/Rehab at discharge to help with mobility and ADL training. (2) Closed compression fracture of L1 lumbar vertebra Assessment/Plan: No changes today. Continues to compound her pain issues. Should wear her brace but states it causes pain. (3) Diabetes Qualifiers: Diabetes mellitus type: type 2 Assessment/Plan: Adequate control on current regimen. On Tube feedings. Plan: No changes today (4) Elevated INR Assessment/Plan: INR 9.8 today. Started on Vitamin k 10 mg PO. Follow labs. IV ordered with plans fro IV FFP if not improved in AM. - Current Meds Current Meds: Current Medications Generic Name Dose Route Start Last Admin Trade Name Freq PRN Reason Stop Dose Admin Acetaminophen 650 mg 01/25/17 20:12 01/26/17 12:40 Tylenol PO 650 mg Q4HR PRN Administration Pain 1 to 4 Acetaminophen/Hydrocodone Bitart 1 tab 01/26/17 13:00 01/28/17 06:04 [place] 5/325 PO 1 tab Q6H MARYBETH Administration Allopurinol 100 mg 01/26/17 09:00 01/28/17 09:05 Zyloprim PEG 100 mg DAILY MARYBETH Administration Atenolol 12.5 mg 01/26/17 09:00 01/28/17 09:05 Tenormin PO 12.5 mg DAILY MARYBETH Administration Atorvastatin Calcium 10 mg 01/26/17 21:00 01/27/17 21:46 Lipitor PO 10 mg QPM MARYBETH Administration Carbidopa/Levodopa 1 tab 01/26/17 09:00 01/28/17 09:05 Sinemet 10 Mg/100 Mg PO 1 tab BID MARYBETH Administration Ezetimibe 10 mg 01/26/17 21:00 01/27/17 21:47 Zetia PO 10 mg QPM MARYBETH Administration Fentanyl 1 patch 01/25/17 22:00 01/25/17 22:01 Duragesic TOP 1 patch Q72H MARYBETH Administration Gabapentin 300 mg 01/25/17 22:00 01/28/17 05:07 Neurontin PO 300 mg TID MARYBETH Administration Insulin Human Regular 1 - 9 unit 01/26/17 13:00 01/28/17 11:47 Novolin R SUBQ 1 unit Q6HR MARYBETH Administration Protocol Levothyroxine Sodium 25 mcg 01/26/17 07:00 01/28/17 06:04 Synthroid PO 25 mcg QDAC MARYBETH Administration Lidocaine 1 patch 01/26/17 09:00 01/28/17 09:06 Lidoderm Patch TOP 1 patch DAILY MARYBETH Administration Lisinopril 10 mg 01/26/17 09:00 01/28/17 09:05 Zestril PO 10 mg BID MARYBETH Administration Lorazepam 0.5 mg 01/27/17 15:52 01/28/17 05:39 Ativan PO 0.5 mg Q6H PRN Administration Anxiety Methocarbamol 500 mg 01/27/17 15:45 01/28/17 05:07 Robaxin PO 500 mg Q6HR PRN Administration Spasms Morphine Sulfate 10 mg 01/25/17 22:44 01/28/17 09:38 Roxanol PO 10 mg Q2HR PRN Administration PAIN Multivitamins 1 tab 01/26/17 09:00 01/28/17 09:05 Theragran PO 1 tab DAILY MARYBETH Administration Nortriptyline HCl 10 mg 01/26/17 21:00 01/27/17 21:47 Pamelor PO 10 mg QPM MARYBETH Administration Polyethylene Glycol 17 gm 01/26/17 09:00 01/28/17 09:05 Miralax PO 17 gm DAILY MARYBETH Administration Sodium Chloride 10 ml 01/25/17 22:00 01/28/17 05:57 Normal Saline Flush 0.9% IVP Not Given Q8HR MARYBETH Temazepam 7.5 mg 01/26/17 21:00 01/27/17 21:46 Restoril PO 7.5 mg QPM MARYBETH Administration - Lab Result Lab results reviewed: Yes Fish Bone Diagrams: 01/26/17 05:22 01/27/17 05:20 - Additional Planning Condition/Complexity: Other (Unchaged) My Orders: My Active Orders 01/27/17 15:45 Methocarbamol [Robaxin] 500 mg PO Q6HR PRN 01/27/17 15:52 LORazepam [Ativan] 0.5 mg PO Q6H PRN 01/28/17 12:26 IV Insert [RC] ONCE 01/28/17 12:28 Phytonadione Inj (Adult) [Vitamin K (Adult)] 10 mg PO ONCE ONE 01/29/17 05:00 COMPREHENSIVE METABOLIC PANEL [CHEM] Timed MAGNESIUM [CHEM] Timed PHOSPHORUS [CHEM] Timed PREALBUMIN [CHEM] Timed PT WITH INR [COAG] DAILYLAB 01/30/17 05:00 PT WITH INR [COAG] DAILYLAB 01/31/17 05:00 PT WITH INR [COAG] DAILYLAB 02/01/17 05:00 COMPREHENSIVE METABOLIC PANEL [CHEM] Timed MAGNESIUM [CHEM] Timed PHOSPHORUS [CHEM] Timed PREALBUMIN [CHEM] Timed PT WITH INR [COAG] DAILYLAB 02/02/17 05:00 PT WITH INR [COAG] DAILYLAB 02/03/17 05:00 PT WITH INR [COAG] DAILYLAB 02/04/17 05:00 PT WITH INR [COAG] DAILYLAB 02/05/17 05:00 PT WITH INR [COAG] DAILYLAB 02/06/17 05:00 PT WITH INR [COAG] DAILYLAB 02/07/17 05:00 PT WITH INR [COAG] DAILYLAB 02/08/17 05:00 PT WITH INR [COAG] DAILYLAB 02/09/17 05:00 PT WITH INR [COAG] DAILYLAB 02/10/17 05:00 PT WITH INR [COAG] DAILYLAB 02/11/17 05:00 PT WITH INR [COAG] DAILYLAB 02/12/17 05:00 PT WITH INR [COAG] DAILYLAB 02/13/17 05:00 PT WITH INR [COAG] DAILYLAB 02/14/17 05:00 PT WITH INR [COAG] DAILYLAB 02/15/17 05:00 PT WITH INR [COAG] DAILYLAB 02/16/17 05:00 PT WITH INR [COAG] DAILYLAB 02/17/17 05:00 PT WITH INR [COAG] DAILYLAB 02/18/17 05:00 PT WITH INR [COAG] DAILYLAB 02/19/17 05:00 PT WITH INR [COAG] DAILYLAB 02/20/17 05:00 PT WITH INR [COAG] DAILYLAB 02/21/17 05:00 PT WITH INR [COAG] DAILYLAB 02/22/17 05:00 PT WITH INR [COAG] DAILYLAB 02/23/17 05:00 PT WITH INR [COAG] DAILYLAB 02/24/17 05:00 PT WITH INR [COAG] DAILYLAB 02/25/17 05:00 PT WITH INR [COAG] DAILYLAB 02/26/17 05:00 PT WITH INR [COAG] DAILYLAB 02/27/17 05:00 PT WITH INR [COAG] DAILYLAB 02/28/17 05:00 PT WITH INR [COAG] DAILYLAB 03/01/17 05:00 PT WITH INR [COAG] DAILYLAB 03/02/17 05:00 PT WITH INR [COAG] DAILYLAB 03/03/17 05:00 PT WITH INR [COAG] DAILYLAB 03/04/17 05:00 PT WITH INR [COAG] DAILYLAB 03/05/17 05:00 PT WITH INR [COAG] DAILYLAB 03/06/17 05:00 PT WITH INR [COAG] DAILYLAB 03/07/17 05:00 PT WITH INR [COAG] DAILYLAB 03/08/17 05:00 PT WITH INR [COAG] DAILYLAB 03/09/17 05:00 PT WITH INR [COAG] DAILYLAB 03/10/17 05:00 PT WITH INR [COAG] DAILYLAB 03/11/17 05:00 PT WITH INR [COAG] DAILYLAB 03/12/17 05:00 PT WITH INR [COAG] DAILYLAB 03/13/17 05:00 PT WITH INR [COAG] DAILYLAB 03/14/17 05:00 PT WITH INR [COAG] DAILYLAB 03/15/17 05:00 PT WITH INR [COAG] DAILYLAB 03/16/17 05:00 PT WITH INR [COAG] DAILYLAB 03/17/17 05:00 PT WITH INR [COAG] DAILYLAB 03/18/17 05:00 PT WITH INR [COAG] DAILYLAB 03/19/17 05:00 PT WITH INR [COAG] DAILYLAB 03/20/17 05:00 PT WITH INR [COAG] DAILYLAB 03/21/17 05:00 PT WITH INR [COAG] DAILYLAB 03/22/17 05:00 PT WITH INR [COAG] DAILYLAB 03/23/17 05:00 PT WITH INR [COAG] DAILYLAB 03/24/17 05:00 PT WITH INR [COAG] DAILYLAB 03/25/17 05:00 PT WITH INR [COAG] DAILYLAB 03/26/17 05:00 PT WITH INR [COAG] DAILYLAB 03/27/17 05:00 PT WITH INR [COAG] DAILYLAB 03/28/17 05:00 PT WITH INR [COAG] DAILYLAB 03/29/17 05:00 PT WITH INR [COAG] DAILYLAB 03/30/17 05:00 PT WITH INR [COAG] DAILYLAB 03/31/17 05:00 PT WITH INR [COAG] DAILYLAB 04/01/17 05:00 PT WITH INR [COAG] DAILYLAB 04/02/17 05:00 PT WITH INR [COAG] DAILYLAB 04/03/17 05:00 PT WITH INR [COAG] DAILYLAB 04/04/17 05:00 PT WITH INR [COAG] DAILYLAB 04/05/17 05:00 PT WITH INR [COAG] DAILYLAB 04/06/17 05:00 PT WITH INR [COAG] DAILYLAB 04/07/17 05:00 PT WITH INR [COAG] DAILYLAB 04/08/17 05:00 PT WITH INR [COAG] DAILYLAB 04/09/17 05:00 PT WITH INR [COAG] DAILYLAB 04/10/17 05:00 PT WITH INR [COAG] DAILYLAB 04/11/17 05:00 PT WITH INR [COAG] DAILYLAB 04/12/17 05:00 PT WITH INR [COAG] DAILYLAB 04/13/17 05:00 PT WITH INR [COAG] DAILYLAB 04/14/17 05:00 PT WITH INR [COAG] DAILYLAB 04/15/17 05:00 PT WITH INR [COAG] DAILYLAB 04/16/17 05:00 PT WITH INR [COAG] DAILYLAB 04/17/17 05:00 PT WITH INR [COAG] DAILYLAB 04/18/17 05:00 PT WITH INR [COAG] DAILYLAB 04/19/17 05:00 PT WITH INR [COAG] DAILYLAB 04/20/17 05:00 PT WITH INR [COAG] DAILYLAB 04/21/17 05:00 PT WITH INR [COAG] DAILYLAB 04/22/17 05:00 PT WITH INR [COAG] DAILYLAB 04/23/17 05:00 PT WITH INR [COAG] DAILYLAB 04/24/17 05:00 PT WITH INR [COAG] DAILYLAB 04/25/17 05:00 PT WITH INR [COAG] DAILYLAB 04/26/17 05:00 PT WITH INR [COAG] DAILYLAB 04/27/17 05:00 PT WITH INR [COAG] DAILYLAB 04/28/17 05:00 PT WITH INR [COAG] DAILYLAB 04/29/17 05:00 PT WITH INR [COAG] DAILYLAB 04/30/17 05:00 PT WITH INR [COAG] DAILYLAB 05/01/17 05:00 PT WITH INR [COAG] DAILYLAB 05/02/17 05:00 PT WITH INR [COAG] DAILYLAB 05/03/17 05:00 PT WITH INR [COAG] DAILYLAB 05/04/17 05:00 PT WITH INR [COAG] DAILYLAB 05/05/17 05:00 PT WITH INR [COAG] DAILYLAB 05/06/17 05:00 PT WITH INR [COAG] DAILYLAB Plan Discussed with:: Patient Time Spent: 15-30 minutes Subjective - Subjective Patient Reports: Pain (Pt contineus to complain of pain. No chest pain or dyspnea.) Nursing Reports: Pain Objective Vital Signs: Vital Signs - 24 hr 01/27/17 01/27/17 01/28/17 16:59 21:00 00:06 Temperature 36.9 C 36.8 C 36.5 C Heart Rate [ 82 74 72 Brachial] Respiratory 18 12 14 Rate Blood Pressure 102/51 L 129/66 91/53 L [Left Brachial artery] O2 Saturation 93 96 95 01/28/17 01/28/17 04:10 07:53 Temperature 36.5 C 36.7 C Heart Rate [ 65 81 Brachial] Respiratory 16 14 Rate Blood Pressure 95/54 L 110/61 [Left Brachial artery] O2 Saturation 95 94 Oxygen O2 Source Nasal cannula I&O (Last 24 Hrs): Intake and Output Totals x24h 01/26/17 01/27/17 01/28/17 23:59 23:59 23:59 Intake Total 1037 1161 1636 Output Total 15 10 775 Balance 1022 1151 861 General: Alert, Oriented x3 HEENT: PERRLA Neck: No JVD Neuro: Alert, CN 2-12 Grossly Intact Cardiovascular: Regular rate, Normal S1 Respiratory: Chest non-tender, No respiratory distress Abdomen: Normal bowel sounds Extremities: No edema Skin: No breakdown - Results Results: Laboratory Results WBC 15.5 x10^3/uL (4.8-10.8) H 01/26/17 05:22 RBC 3.98 10^6/uL (4.20-5.40) L 01/26/17 05:22 Hgb 11.5 g/dL (12.0-16.0) L 01/26/17 05:22 Hct 35.3 % (37.0-47.0) L 01/26/17 05:22 MCV 88.6 fL (81.0-99.0) 01/26/17 05:22 MCH 28.8 pg (27.0-31.0) 01/26/17 05:22 MCHC 32.5 g/dL (32.0-36.0) 01/26/17 05:22 RDW 15.8 % (12.0-15.0) H 01/26/17 05:22 Plt Count 288 10^3/uL (130-450) 01/26/17 05:22 MPV 7.1 fL (7.9-10.8) L 01/26/17 05:22 Neut # TRANSMISSION MAINTENANCE SUPERVISOR 01/26/17 05:22 Lymph # TRANSMISSION MAINTENANCE SUPERVISOR 01/26/17 05:22 [place] # TRANSMISSION MAINTENANCE SUPERVISOR 01/26/17 05:22 Eos # TRANSMISSION MAINTENANCE SUPERVISOR 01/26/17 05:22 Baso # TRANSMISSION MAINTENANCE SUPERVISOR 01/26/17 05:22 Absolute Nucleated RBC TRANSMISSION MAINTENANCE SUPERVISOR 01/26/17 05:22 Total Counted 100 01/26/17 05:22 Band Neuts % (Manual) 8 % (0-10) 01/26/17 05:22 Metamyelocytes % 2 % (-0) H 01/26/17 05:22 Myelocytes % 3 % (-0) H 01/26/17 05:22 Neutrophils # (Manual) 12.9 10^3/uL (1.5-6.6) H 01/26/17 05:22 Lymphocytes # (Manual) 1.7 10^3/uL (1.5-3.5) 01/26/17 05:22 Monocytes # (Manual) 0.2 10^3/uL (0.0-1.0) 01/26/17 05:22 Nucleated RBCs TRANSMISSION MAINTENANCE SUPERVISOR 01/26/17 05:22 Differential Comment MANUAL DIFFERENTIAL 01/26/17 05:22 Platelet Estimate NORMAL (130-450,000) (NORMAL) 01/26/17 05:22 RBC Morph Micro Appear NORMAL APPEARANCE (NORMAL) 01/26/17 05:22 PT 112.3 secs (9.9-12.6) H 01/28/17 07:31 INR 9.8 (0.8-1.2) H* 01/28/17 07:31 Sodium 136 mmol/L (135-145) 01/27/17 05:20 Potassium 4.9 mmol/L (3.5-5.0) 01/27/17 05:20 Chloride 96 mmol/L (101-111) L 01/27/17 05:20 Carbon Dioxide 30 mmol/L (21-32) 01/27/17 05:20 Anion Gap 10.0 (6-13) 01/27/17 05:20 BUN 68 mg/dL (6-20) H 01/27/17 05:20 Creatinine 1.0 mg/dL (0.4-1.0) 01/27/17 05:20 Estimated GFR (MDRD) 53 (>89) L 01/27/17 05:20 Glucose 210 mg/dL (70-100) H 01/27/17 05:20 POC Whole Bld Glucose 143 mg/dL (70 - 100) H 01/28/17 11:17 Calcium 9.4 mg/dL (8.5-10.3) 01/27/17 05:20 Phosphorus 2.8 mg/dL (2.5-4.6) 01/27/17 05:20 Magnesium 2.2 mg/dL (1.7-2.8) 01/27/17 05:20 Total Bilirubin < 0.2 mg/dL (0.2-1.0) L 01/27/17 05:20 AST 19 IU/L (10-42) 01/27/17 05:20 ALT 13 IU/L (10-60) 01/27/17 05:20 Alkaline Phosphatase 53 IU/L (42-121) 01/27/17 05:20 Total Protein 5.5 g/dL (6.7-8.2) L 01/27/17 05:20 Albumin 2.2 g/dL (3.2-5.5) L 01/27/17 05:20 Globulin 3.3 g/dL (2.1-4.2) 01/27/17 05:20 Albumin/Globulin Ratio 0.7 (1.0-2.2) L 01/27/17 05:20 Prealbumin 13 mg/dL (18-45) L 01/27/17 05:20 - Procedures Procedures: Procedures APPLIC OF EXTERNAL FIXATOR DEVICE, RADIUS AND ULNA (12/13/13) CL RED-INT FIX RAD/ULNA (12/13/13) EXCISION OF LOWER ESOPHAGUS, ENDO, DIAGN (10/09/16) EXCISION OF STOMACH, ENDO, DIAGN (10/09/16) EXCISION OF UPPER ESOPHAGUS, ENDO, DIAGN (10/09/16) INSERTION OF INFUSION DEV INTO SUP VENA CAVA, PERC APPROACH (10/09/16)
[2017-01-28] MEDS ORDERED: FUROSEMIDE 40 MG/4 ML VIAL IVP SCH (13:00)
[2017-01-28] MEDS ORDERED: CHERRY SYRUP 10 ML UDC PO ONE (13:30)
[2017-01-28] MEDS ORDERED: PHYTONADIONE 10 MG/ML AMP PO ONE (13:30)
[2017-01-28] MEDS: ACETAMINOPHEN 325 MG TABLET PO PRN (16:05)
[2017-01-28] MEDS ORDERED: LORazepam 2 MG/ML SYRINGE IVP PRN (17:08)
[2017-01-28] MEDS ORDERED: HYDROmorphone 1 MG/ML SYRINGE IVP PRN (17:09)
[2017-01-28] MEDS ORDERED: ZIPRASIDONE 20 MG VIAL IM ONE (18:26)
[2017-01-28] MEDS: TEMAZEPAM 7.5 MG CAPSULE PO SCH (21:47)
[2017-01-28] MEDS: EZETIMIBE 10 MG TABLET PO SCH (21:47)
[2017-01-28] MEDS: ATORVASTATIN 10 MG TABLET PO SCH (21:47)
[2017-01-28] MEDS: NORTRIPTYLINE 10 MG CAPSULE PO SCH (21:47)
[2017-01-28] MEDS: fentaNYL 50 MCG PATCH TOP SCH (21:50)
[2017-01-29] MEDS: INSULIN REGULAR HUMAN 100 UNIT/1 ML 10 ML MDV SUBQ SCH ×2 (00:13→06:22)
[2017-01-29] MEDS: HYDROcod/ACETAM 5/325 MG TABLET PO SCH ×2 (00:45→06:28)
[2017-01-29] MEDS: LORazepam 0.5 MG TABLET PO PRN (01:16)
[2017-01-29] MEDS: MORPHINE SOL 10 MG/0.5 ML SYRINGE PO PRN ×3 (01:25→12:16)
[2017-01-29] MEDS: METHOCARBAMOL 500 MG TABLET PO PRN (05:18)
[2017-01-29] MEDS: GABAPENTIN 300 MG CAPSULE PO SCH (05:19)
[2017-01-29] MEDS: SODIUM CHLORIDE FLUSH 0.9% 10 ML SYRINGE IVP SCH (05:19)
[2017-01-29 05:53] LABS: INR 1.2 (0.8-1.2); PT - PROTHROMBIN TIME 14.1 secs (9.9-12.6)
[2017-01-29 06:02] LABS: ALBUMIN/GLOBULIN RATIO 0.7 (1.0-2.2); BILIRUBIN,TOTAL 0.5 mg/dL (0.2-1.0); CALCIUM 9.1 mg/dL (8.5-10.3); CREATININE 1.1 mg/dL (0.4-1.0); MAGNESIUM 2.1 mg/dL (1.7-2.8); PHOSPHORUS 3.2 mg/dL (2.5-4.6); TOTAL PROTEIN 5.8 g/dL (6.7-8.2)
[2017-01-29 06:21] VITALS: BP 103/50
[2017-01-29] MEDS: LEVOTHYROXINE 25 MCG TABLET PO SCH (06:28)
[2017-01-29] MEDS: LIDOCAINE PATCH 5% TOP SCH (10:03)
[2017-01-29] MEDS: ATENOLOL 25 MG TABLET PO SCH (10:04)
[2017-01-29] MEDS: MULTIVITAMIN TABLET PO SCH (10:04)
[2017-01-29] MEDS: LISINOPRIL 5 MG TABLET PO SCH (10:04)
[2017-01-29] MEDS: ALLOPURINOL 100 MG TABLET PEG SCH (10:04)
--- NOTE | 2017-01-29 11:02 | Discharge Plan ---
Discharge Plan Disposition: 03 SNF DC/Xfer Condition: Stable Prescriptions: LORazepam [Ativan] 0.5 mg PO Q6H PRN #30 tablet PRN Reason: Anxiety HYDROcod/ACETAM 5/325 [[place] 5/325] 1 tab PO Q6H #30 tablet Rivaroxaban [Xarelto] 15 mg PO 1700 #30 tablet Diet: Diabetic Activity Restrictions: Wt Bearing as Tolerated Assistance Devices: Wheelchair, Walker Weight Bearing: Full Weight No Smoking: If you smoke, Please STOP! Call for help. Follow-up with: Mehreen Dennison MD [Primary Care Provider] -
[2017-01-29] MEDS ORDERED: RIVAROXABAN 15 MG TABLET PO SCH (17:00)
--- NOTE | 2017-01-31 06:49 | DISCHARGE SUMMARY ---
DATE OF ADMISSION: 01/25/2017 DATE OF DISCHARGE: 01/29/2017 PRIMARY CARE PHYSICIAN: Mehreen Dennison MD DISCHARGING PROVIDER: Elia Gonzalez PA-C ADMITTING DIAGNOSIS 1. Intractable pain from vertebral compression fracture. 2. Hypertension - controlled. 3. Type 2 diabetes - chronic. 4. 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 DISCHARGE DIAGNOSES 1. Intractable pain from vertebral compression fracture of L1. 2. Hypertension - controlled. 3. Type 2 diabetes - chronic. 4. 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 5. History of pulmonary embolism on long-term anticoagulation. Supratherapeutic INR of 9.8. BRIEF HISTORY OF PRESENT ILLNESS: For specifics, please see that on admission. This is a patient who had a discharge from [facility] on 01/21/2017 with intractable back pain secondary to h er vertebral fracture. She had been seen in physical therapy, and Duragesic patch was increased from 25 to 50 mcg daily. The patient was at home and being cared for by caregivers and her spouse. Her spo use did not feel he could care for her further without additional assistance. In the emergency department, the ER physician was able to have images reviewed by Neurosurgery at [facility], who felt that she did not need to be seen as an inpatient but could be seen a s an outpatient in consultation. Patient was given dexamethasone 10 mg in the emergency department an d admitted for further evaluation. COURSE IN CENTER: Patient was admitted to the medical floor. She was continued on her fentanyl patch. She was given additional narcotic pain medication to help control her pain. The patient required inc rease in her pain medication from q.12 hours to q.6 hours for improved control. She was also given fe ntanyl for breakthrough pain, which seemed to help. The patient did not participate in physical thera py during her hospitalization due to inability to mobilize without pain. There is some concern that h er lack of mobility is contributing to her pain, aches, and muscle stiffness. She also anticipates th e pain, and she is holding herself rigid, which is contributing to the problem. We discussed her need to mobilize, but she declined, saying that she hurts too much to move around. The patient was on warfarin for pulmonary embolism. INR was checked and was found to be 5.1. Repeat e valuation showed the INR of 10. She was given vitamin K to reduce the effects of the warfarin. The IN R decreased to 1.2 the following day. Due to the difficulties in maintaining an appropriate INR, give n her changes in diet, tube feedings, and changes in medications, we changed her from warfarin to Xar elto 15 mg daily. At time of discharge, she continued to be uncomfortable. The patient was to be lu sferred to [facility] for further management. Current transition was for respite care, as her is unable to care for her himself. She will probably need long-term care, as she is unable to mobilize and will make it difficult for her to maintain at her home environment. PHYSICAL EXAMINATION ON DISCHARGE GENERAL: A chronically ill-appearing female in mild distress. ABDOMEN: Obese with positive bowel tones. CHEST: Clear to auscultation. CARDIOVASCULAR: Regular rate and rhythm. EXTREMITIES: Without edema. DISCHARGE MEDICATIONS 1. Robaxin 500 mg q.6 hours. 2. Ativan 0.5 mg q.6 hours as needed. 3. Fentanyl 50 mcg patch 1 patch applied every 72 every hours. 4. Vytorin 20/10 nightly. 5. Lisinopril 10 mg b.i.d. 6. Xarelto 15 mg daily. 7. Atenolol 12.5 mg daily. 8. Sinemet 10/100 b.i.d. 9. Restoril 7.5 mg at night. 10. Nortriptyline 10 mg at night. DISPOSITION 1. The patient is discharged to [facility] for respite care; will likely need long-term jail and rehabilitation. 2. Follow up with primary care provider 1 week after discharge from the care facility. 3. The patient to schedule a consultation with neurology services at [facility]. Thank you for the opportunity to participate in the care of the patient and all her medical needs. JOB #: [id number] EXT JOB #:[id number]
== END 2017-01-29 12:23 | DRG 93 ==
LOC: EDUNIT# → ED 16:20 → OBSVTOIN 20:12 → UNDOADMOB 20:12 → INTOOBSV 20:12 → MS 20:12 → OBSVTOIN 01-26 10:29 → MS 01-26 16:13 → UNDODISIN 01-29 12:23
PROVIDERS: ADMIT Specialist; ATTEND Physician Assistant
DX: G89.21 Chronic pain due to trauma (principal); S32.011D Stable burst fracture of first lumbar vertebra, subsequent encounter for fracture with routine healing; E11.22 Type 2 diabetes mellitus with diabetic chronic kidney disease; I12.9 Hypertensive chronic kidney disease with stage 1 through stage 4 chronic kidney disease, or unspecified chronic kidney disease; N18.9 Chronic kidney disease, unspecified; E78.5 Hyperlipidemia, unspecified; I25.10 Atherosclerotic heart disease of native coronary artery without angina pectoris; I73.9 Peripheral vascular disease, unspecified; M10.9 Gout, unspecified; M51.36 Other intervertebral disc degeneration, lumbar region; M43.16 Spondylolisthesis, lumbar region; I10 Essential (primary) hypertension; E11.9 Type 2 diabetes mellitus without complications; Z66 Do not resuscitate; Z87.891 Personal history of nicotine dependence; Z86.19 Personal history of other infectious and parasitic diseases; Z93.1 Gastrostomy status; Z86.711 Personal history of pulmonary embolism; Z79.01 Long term (current) use of anticoagulants; Z79.891 Long term (current) use of opiate analgesic
CPT/HCPCS: 36415; 51701; 80053; 83735; 84100; 84134; 85025; 85610; 99283; 99284

== ENCOUNTER 2017-01-29 12:37 | Outpatient (CLI) | payer MEDICARE, OTHER | END 2017-01-29 12:38 | LOC: EMS 12:37 | PROVIDERS: ATTEND Surgery | DX: Z74.01 Bed confinement status (principal); M54.9 Dorsalgia, unspecified | CPT/HCPCS: A0425; A0428 ==